=== PATIENT | female | born 1945 | race Caucasian/White ===

== ENCOUNTER 2018-12-16 15:54 | Inpatient (IN) | payer MEDICARE, OTHER ==
[~2018-12-16] VITALS: Ht 170.2 cm; Wt 78.9 kg
[2018-12-16] MEDS ORDERED: NITROGLYCERIN SUBLINGUAL 0.4 MG BOTTLE OF 25. SL PRN (16:15)
[2018-12-16] MEDS: ASPIRIN 81 MG TAB.CHEW PO ONE ×2 (16:15→16:21)
[2018-12-16] MEDS ORDERED: ASPIRIN 325 MG TABLET PO ONE (16:30)
[2018-12-16 16:52] LABS: BASO # 0.1 x10^3/uL (0.0-0.2); BASO % 0 % (0-3); EOS # 0.1 x10^3/uL (0.0-0.7); EOS % 1 % (0-3); HEMATOCRIT 51.7 % (36.0-47.0); HEMOGLOBIN 17.5 g/dL (12.0-15.5); LYMPH # 0.6 x10^3/uL (1.0-4.8); LYMPH % 4 % (24-48); MEAN CORPUSCULAR HEMOGLOBIN 31 pg (25-35); MEAN CORPUSCULAR HGB CONC 34 g/dL (31-37); MEAN CORPUSCULAR VOLUME 91 fL (79-100); MONO # 0.5 x10^3/uL (0.0-1.1); MONO % 3 % (0-9); NEUT # 13.2 x10^3uL (1.8-7.7); NEUT % 91 % (31-73); PLATELET COUNT 272 x10^3/uL (140-400); RED BLOOD COUNT 5.67 x10^6/uL (3.50-5.40); RED CELL DISTRIBUTION WIDTH 12.9 % (11.5-14.5); WHITE BLOOD COUNT 14.4 x10^3/uL (4.0-11.0)
[2018-12-16] MEDS ORDERED: ONDANSETRON PF 4 MG/2 ML VIAL. ONE ×2 (16:55→21:04)
[2018-12-16 16:58] LABS: ALBUMIN 4.7 g/dL (3.4-5.0); ALBUMIN/GLOBULIN RATIO 1.3 (1.0-1.7); CALCIUM 9.8 mg/dL (8.5-10.1); CREATININE 0.9 mg/dL (0.6-1.0); GFR 61.7; MAGNESIUM 1.8 mg/dL (1.8-2.4); TOTAL BILIRUBIN 0.6 mg/dL (0.2-1.0); TOTAL PROTEIN 8.3 g/dL (6.4-8.2)
[2018-12-16] MEDS ORDERED: ONDANSETRON PF 4 MG/2 ML VIAL. IV ONE ×2 (17:00→21:15)
--- NOTE | 2018-12-16 17:19 | PHYS DOC ---
Past History Past Medical History: Anxiety, CVA, Hypertension, Other Past Surgical History: Hysterectomy, Tonsillectomy Alcohol Use: None Drug Use: None Adult General Chief Complaint Chief Complaint: CHEST PAIN HPI HPI Patient is a 73 year old female who presents with with of chest pain. Patient is hard of hearing and a poor historian and states she has had episodes of left -sided chest pain for the last 2-3 days intermittently as a squeezing and sharp pain with shortness of breath and nausea. Patient states she vomited multiple times today may be more than 10 and states she had the same pain previously with diagnosis of musculoskeletal chest pain. Patient had history of smoking and hypertension and denies history of CAD, dyslipidemia, coronary artery disease. She rated her pain 3/10. Review of Systems Review of Systems Constitutional: Denies fever or chills [] Eyes: Denies change in visual acuity, redness, or eye pain [] HENT: Denies nasal congestion or sore throat [] Respiratory: Reports cough and shortness of breath Cardiovascular: No additional information not addressed in HPI [] GI: Denies abdominal pain, bloody stools or diarrhea, reports nausea and vomiting] : Denies dysuria or hematuria [] Musculoskeletal: Denies back pain or joint pain [] Integument: Denies rash or skin lesions [] Neurologic: Denies headache, focal weakness or sensory changes [] Endocrine: Denies polyuria or polydipsia [] All other systems were reviewed and found to be within normal limits, except as documented in this note. Current Medications Current Medications Current Medications Medications (Trade) Dose Ordered Sig/Antonio Start Time Stop Time Status Last Admin Dose Admin Aspirin (Kait Aspirin) 325 mg 1X ONCE 12/16/18 16:30 12/16/18 16:31 DC Aspirin (Children'S Aspirin) 324 mg 1X ONCE 12/16/18 16:15 12/16/18 16:20 DC Nitroglycerin (Nitrostat) 0.4 mg PRN Q5MIN PRN 12/16/18 16:15 12/17/18 16:14 Ondansetron HCl (Zofran) 4 mg STK-MED ONCE 12/16/18 16:55 12/16/18 16:56 DC Allergies Allergies Allergies Coded Allergies Type Severity Reaction Last Updated Verified erythromycin base Allergy Unknown 12/16/18 Yes Uncoded Allergies Type Severity Reaction Last Updated Verified ANY DYE Allergy Unknown 12/16/18 Physical Exam Physical Exam Constitutional: Wel nourished, no acute distress, non-toxic appearance, hard of hearing. [] HENT: Normocephalic, atraumatic Eyes: PERRLA, EOMI, conjunctiva normal, no discharge. [] Neck: Normal range of motion, no tenderness, supple, no stridor. [] Cardiovascular:Heart rate regular rhythm, no murmur [] Lungs & Thorax: Bilateral breath sounds clear to auscultation , reproducible left-sided chest pain [] Abdomen: Bowel sounds normal, soft, no tenderness, no masses, no pulsatile masses. [] Skin: Warm, dry, no erythema, no rash. [] Back: No tenderness, no CVA tenderness. [] Extremities: No tenderness, no cyanosis, no clubbing, ROM intact, no edema. [] Neurologic: Alert and oriented X 3, normal motor function, normal sensory function, no focal deficits noted. [] Psychologic: Affect depress, normal mood Current Patient Data Vital Signs Vital Signs Date Time Temp Pulse Resp B/P (MAP) Pulse Ox O2 Delivery O2 Flow Rate FiO2 12/16/18 15:54 94.4 120 24 98 Room Air Lab Results Laboratory Tests Test 12/16/18 16:09 12/16/18 16:18 Troponin I Quantitative < 0.017 ng/mL (0-0.055) White Blood Count 14.4 x10^3/uL (4.0-11.0) H Red Blood Count 5.67 x10^6/uL (3.50-5.40) H Hemoglobin 17.5 g/dL (12.0-15.5) H Hematocrit 51.7 % (36.0-47.0) H Mean Corpuscular Volume 91 fL (79-100) Mean Corpuscular Hemoglobin 31 pg (25-35) Mean Corpuscular Hemoglobin Concent 34 g/dL (31-37) Red Cell Distribution Width 12.9 % (11.5-14.5) Platelet Count 272 x10^3/uL (140-400) Neutrophils (%) (Auto) 91 % (31-73) H Lymphocytes (%) (Auto) 4 % (24-48) L Monocytes (%) (Auto) 3 % (0-9) Eosinophils (%) (Auto) 1 % (0-3) Basophils (%) (Auto) 0 % (0-3) Neutrophils # (Auto) 13.2 x10^3uL (1.8-7.7) H Lymphocytes # (Auto) 0.6 x10^3/uL (1.0-4.8) L Monocytes # (Auto) 0.5 x10^3/uL (0.0-1.1) Eosinophils # (Auto) 0.1 x10^3/uL (0.0-0.7) Basophils # (Auto) 0.1 x10^3/uL (0.0-0.2) Prothrombin Time 10.0 SEC (9.4-11.4) Prothrombin Time INR 1.0 (0.9-1.1) Sodium Level 137 mmol/L (136-145) Potassium Level 4.0 mmol/L (3.5-5.1) Chloride Level 97 mmol/L (98-107) L Carbon Dioxide Level 29 mmol/L (21-32) Anion Gap 11 (6-14) Blood Urea Nitrogen 13 mg/dL (7-20) Creatinine 0.9 mg/dL (0.6-1.0) Estimated GFR (Cockcroft-Gault) 61.7 BUN/Creatinine Ratio 14 (6-20) Glucose Level 136 mg/dL (70-99) H Lactic Acid Level 1.2 mmol/L (0.4-2.0) Calcium Level 9.8 mg/dL (8.5-10.1) Magnesium Level 1.8 mg/dL (1.8-2.4) Total Bilirubin 0.6 mg/dL (0.2-1.0) Aspartate Amino Transferase (AST) 19 U/L (15-37) Alanine Aminotransferase (ALT) 22 U/L (14-59) Alkaline Phosphatase 95 U/L (46-116) Creatine Kinase 135 U/L (26-192) UV-Woi-U-Type Natriuretic Peptide 250 pg/mL (0-124) H Total Protein 8.3 g/dL (6.4-8.2) H Albumin 4.7 g/dL (3.4-5.0) Albumin/Globulin Ratio 1.3 (1.0-1.7) Lipase 194 U/L (73-393) EKG EKG EKG interpreted by me. EKG at 1632 showed sinus rhythm at rate of 86, left atrial abnormalities, left reynolds axis, poor R-wave progress in anteroseptal leads , no acute distress and T-wave abnormalities. Radiology/Procedures Radiology/Procedures [address] [address] IMAGING REPORT Signed PATIENT: MICHELLE CASTLE ACCOUNT: [id number] : 1945 LOCATION: ER AGE: 73 SEX: F EXAM STATUS: PRE ER ORD. PHYSICIAN: MADELINE ODEN MD REASON: none PROCEDURE: PORTABLE CHEST 1V EXAM: Chest, single view. HISTORY: Short of breath. COMPARISON: None. FINDINGS: A frontal view of the chest is obtained. There is no infiltrate, pleural effusion or pneumothorax. The heart is normal in size for portable technique. There is slight increased opacity overlying the right mid thorax due to asymmetric overlying soft tissues. IMPRESSION: No acute pulmonary finding. Electronically signed by: Yolanda Lowery MD (12/16/2018 5:37 PM) [facility] DICTATED AND SIGNED BY: YOLANDA LOWERY MD DATE: 12/16/181736 CC: MADELINE ODEN MD; NON,STAFF ~ Course & Med Decision Making Course & Med Decision Making Pertinent Labs and Imaging studies reviewed. (See chart for details) Evaluation of patient in ER showed 73-year-old male patient with complaining of episodes of nausea and vomiting and chest pain for the last 3 days. Patient refused to take aspirin and nitroglycerin was of having dye.. Patient had elevation of white count. Plan to admit patient with diagnose of chest pain and nausea and vomiting. Dragon Disclaimer Dragon Disclaimer This electronic medical record was generated, in whole or in part, using a voice recognition dictation system. Departure Departure: Impression: Primary Impression: Acute chest pain Additional Impressions: Nausea and vomiting Leukocytosis Disposition: ADMITTED INPATIENT (at 1754) Admitting Physician: Burke Burch Referrals: NON,STAFF (PCP) Problem Qualifiers MADELINE ODEN MD Dec 16, 2018 17:19
--- NOTE | 2018-12-16 17:40 | RAD ---
EXAM: Chest, single view. HISTORY: Short of breath. COMPARISON: None. FINDINGS: A frontal view of the chest is obtained. There is no infiltrate, pleural effusion or pneumothorax. The heart is normal in size for portable technique. There is slight increased opacity overlying the right mid thorax due to asymmetric overlying soft tissues. IMPRESSION: No acute pulmonary finding. Electronically signed by: Yolanda Zavala MD (12/16/2018 5:37 PM) [facility]
[2018-12-16] MEDS ORDERED: KETOROLAC 30 MG/ML VIAL. IV ONE (18:30)
--- NOTE | 2018-12-16 21:08 | EKG ---
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
[2018-12-16 21:30] VITALS: BP 105/73
--- NOTE | 2018-12-16 21:30 | NUR ---
The patient, MICHELLE CASTLE, 73 y/o, F admitted by ARIANA PAULSON MD, to room 120 was given written information regarding hospital policies, unit procedures and contact persons. Valuables were checked and left with the patient. Pt placed on telemetry and changed into a gown. Medical history and medications reviewed.
[2018-12-16] MEDS ORDERED: LISI10TA2 PO (23:34)
[2018-12-16] MEDS ORDERED: LORA10TA3 PO (23:35)
[2018-12-16] MEDS ORDERED: METO200T46 PO (23:35)
[2018-12-16] MEDS ORDERED: CALC200T3 PO (23:39)
[2018-12-16] MEDS ORDERED: LATA7.5D OU (23:39)
[2018-12-16] MEDS ORDERED: SUMA50TA3 PO (23:39)
[2018-12-16] MEDS ORDERED: TRAM-48 PO (23:39)
[2018-12-17] MEDS ORDERED: CALCIUM CARBONATE 500 MG TAB.CHEW PO PRN (01:00)
[2018-12-17 03:52] VITALS: BP 95/67
[2018-12-17] MEDS ORDERED: IV NORMAL SALINE 500ML 500 ML IV ONE (04:30)
[2018-12-17] MEDS ORDERED: IV NORMAL SALINE 1,000ML 1,000 ML IV SCH (04:30)
[2018-12-17 06:15] VITALS: BP 103/68
[2018-12-17 07:37] LABS: BASO % 0 % (0-3); EOS % 1 % (0-3); HEMATOCRIT 38.3 % (36.0-47.0); HEMOGLOBIN 13.2 g/dL (12.0-15.5); LYMPH # 0.4 x10^3/uL (1.0-4.8); LYMPH % 8 % (24-48); MEAN CORPUSCULAR HEMOGLOBIN 31 pg (25-35); MEAN CORPUSCULAR HGB CONC 34 g/dL (31-37); MEAN CORPUSCULAR VOLUME 91 fL (79-100); MONO # 0.3 x10^3/uL (0.0-1.1); MONO % 5 % (0-9); NEUT # 4.9 x10^3uL (1.8-7.7); NEUT % 87 % (31-73); PLATELET COUNT 174 x10^3/uL (140-400); RED CELL DISTRIBUTION WIDTH 12.8 % (11.5-14.5); WHITE BLOOD COUNT 5.6 x10^3/uL (4.0-11.0)
[2018-12-17 07:53] LABS: ALBUMIN/GLOBULIN RATIO 1.2 (1.0-1.7); CALCIUM 8.6 mg/dL (8.5-10.1); CREATININE 1.1 mg/dL (0.6-1.0); POTASSIUM 4.1 mmol/L (3.5-5.1); TOTAL BILIRUBIN 0.6 mg/dL (0.2-1.0); TOTAL PROTEIN 5.5 g/dL (6.4-8.2)
[2018-12-17] MEDS: METOPROLOL SUCC 24HR ER 50 MG TAB.ER.24H. PO SCH ×2 (08:26→09:00)
[2018-12-17] MEDS: LISINOPRIL 10 MG TABLET PO SCH ×2 (08:26→09:00)
--- NOTE | 2018-12-17 09:18 | PDOC2 ---
CONSULT Date of Admission DATE: 12/17/18 TIME: 09:18 Problem List Problems Medical Problems: (1) Acute chest pain Status: Acute (2) Leukocytosis Status: Acute (3) Nausea and vomiting Status: Acute History of Present Illness Ms Vergara is a 73 year old female who presented to the ED with complaints of chest pain. She reports left sided chest pain both a sharp stabbing pain that lasts seconds but also a pressure and tightness that occur most often with exertion. yesterday she had left sided chest pain with associated nausea and vomiting so presented to the ED. She reports occasional chest pain that radiates up her left shoulder, neck and into her jaw with associated diaphoresis. She is very active normally and cares for an 18 month old grandchild. She denies any congestive symptoms. She does report occasional fluttering in her chest and has had previously been told her rhythm was irregular. She denies any lightheadedness or syncope. She reports that she has not needed to decrease her activity level but is frequently having the chest discomfort episodes with normal activities. Past Medical History brain aneurysm with clipping and shunt hypertension skiing accident with multiple fractures and internal bleeding s/p prolonged ICU stay and multiple left sided fracture repairs. hard of hearing migranes GERD anxiety depression Past Surgical History: Hysterectomy, Other (multiple left sided orthopedic surgeries with rods and pins lower extremitites, aneurysm clipping and shunt) Family History alcoholism, lung and kidney cancer, as well as coronary artery disease in her mother. Social History remote history of alcoholism, stopped smoking 15 years ago, no illicit drug use Current Medications Home meds Toprol XL 400mg daily Lisinopril 10 mg daily tramadol PRN sumatriptan PRN Tums prn loratadine 10mg prn Current Medications Aspirin (Children'S Aspirin) 324 mg 1X ONCE PO ; Start 12/16/18 at 16:15; Stop 12/16/18 at 16:20; Status DC Nitroglycerin (Nitrostat) 0.4 mg PRN Q5MIN PRN SL CP RATING > 1/10; Start 12/16 at 16:15; Stop 12/17/18 at 16:14 Aspirin (Kait Aspirin) 325 mg 1X ONCE PO ; Start 12/16/18 at 16:30; Stop 12/16 at 16:31; Status DC Ondansetron HCl (Zofran) 4 mg 1X ONCE IV Last administered on 3/10/19at 17:04 ; Start 12/16/18 at 17:00; Stop 12/16/18 at 17:01; Status DC Ondansetron HCl (Zofran) 4 mg STK-MED ONCE .ROUTE ; Start 12/16/18 at 16:55; Stop 12/16/18 at 16:56; Status DC Ketorolac Tromethamine (Toradol 30mg Vial) 30 mg 1X ONCE IV Last administered on 12/16/18at 21:07; Start 12/16/18 at 18:30; Stop 12/16/18 at 18:31; Status DC Ondansetron HCl (Zofran) 8 mg 1X ONCE IV Last administered on 12/16/18at 21:07 ; Start 12/16/18 at 21:15; Stop 12/16/18 at 21:16; Status DC Ondansetron HCl (Zofran) 4 mg STK-MED ONCE .ROUTE ; Start 12/16/18 at 21:04; Stop 12/16/18 at 21:05; Status DC Calcium Carbonate/ Glycine (Tums) 200 mg PRN Q6HRS PRN PO INDIGESTION; Start at 01:00 Lisinopril (Prinivil) 10 mg DAILY PO ; Start 12/17/18 at 09:00 Metoprolol Succinate (Toprol Xl) 400 mg DAILY PO ; Start 12/17/18 at 09:00 Sodium Chloride 500 ml @ 0 mls/hr 1X ONCE IV Last administered on 12/17/18at 04 :30; Start 12/17/18 at 04:30; Stop 12/17/18 at 05:40; Status DC Sodium Chloride 1,000 ml @ 100 mls/hr Q10H IV Last administered on 12/17/18at 06:00; Start 12/17/18 at 04:30 Active Scripts Active Reported Tums (Calcium Carbonate) 200 Mg Tab.chew 200 Mg PO Q6HRS PRN Ultram (Tramadol HCl) 50 Mg Tablet 1 Tab PO Q6 PRN Latanoprost 0.005% Eye Drop (Latanoprost/Pf) 7.5 Ml Drops 1 Drop OU DAILY Imitrex (Sumatriptan Succinate) 50 Mg Tablet 1 Tab PO DAILY PRN Loratadine 10 Mg Tablet 1 Tab PO DAILY PRN Metoprolol Succinate ( Xl ) (Metoprolol Succinate) 200 Mg Tab.er.24h 400 Mg PO DAILY Lisinopril 10 Mg Tablet 10 Mg PO DAILY Allergies: Coded Allergies: erythromycin base (Verified Allergy, Unknown, 12/16/18) Uncoded Allergies: ANY DYE (Allergy, Unknown, 12/16/18) Review of System as per HPI or negative General: Alert, Oriented X3, Cooperative, No acute distress HEENT: Atraumatic, EOMI, Mucous membr. moist/pink Lungs: Clear to auscultation Heart: Normal S1, Normal S2, Other (no gallops, clicks or rubs) Abdomen: Normal bowel sounds, Soft, No tenderness Extremities: No cyanosis, Normal pulses Neuro: Normal speech, Strength at 5/5 X4 ext Psych/Mental Status: Mental status NL, Mood NL VITALS Vital Signs Date Time Temp Pulse Resp B/P (MAP) Pulse Ox O2 Delivery O2 Flow Rate FiO2 12/17/18 09:17 Room Air 12/17/18 09:00 64 103/68 12/17/18 06:15 98.0 18 94 Labs Laboratory Tests Test 12/16/18 16:09 12/16/18 16:18 12/17/18 00:35 12/17/18 06:00 Troponin I Quantitative < 0.017 ng/mL (0-0.055) < 0.017 ng/mL (0-0.055) < 0.017 ng/mL (0-0.055) White Blood Count 14.4 x10^3/uL (4.0-11.0) 5.6 x10^3/uL (4.0-11.0) Red Blood Count 5.67 x10^6/uL (3.50-5.40) 4.20 x10^6/uL (3.50-5.40) Hemoglobin 17.5 g/dL (12.0-15.5) 13.2 g/dL (12.0-15.5) Hematocrit 51.7 % (36.0-47.0) 38.3 % (36.0-47.0) Mean Corpuscular Volume 91 fL (79-100) 91 fL (79-100) Mean Corpuscular Hemoglobin 31 pg (25-35) 31 pg (25-35) Mean Corpuscular Hemoglobin Concent 34 g/dL (31-37) 34 g/dL (31-37) Red Cell Distribution Width 12.9 % (11.5-14.5) 12.8 % (11.5-14.5) Platelet Count 272 x10^3/uL (140-400) 174 x10^3/uL (140-400) Neutrophils (%) (Auto) 91 % (31-73) 87 % (31-73) Lymphocytes (%) (Auto) 4 % (24-48) 8 % (24-48) Monocytes (%) (Auto) 3 % (0-9) 5 % (0-9) Eosinophils (%) (Auto) 1 % (0-3) 1 % (0-3) Basophils (%) (Auto) 0 % (0-3) 0 % (0-3) Neutrophils # (Auto) 13.2 x10^3uL (1.8-7.7) 4.9 x10^3uL (1.8-7.7) Lymphocytes # (Auto) 0.6 x10^3/uL (1.0-4.8) 0.4 x10^3/uL (1.0-4.8) Monocytes # (Auto) 0.5 x10^3/uL (0.0-1.1) 0.3 x10^3/uL (0.0-1.1) Eosinophils # (Auto) 0.1 x10^3/uL (0.0-0.7) 0.0 x10^3/uL (0.0-0.7) Basophils # (Auto) 0.1 x10^3/uL (0.0-0.2) 0.0 x10^3/uL (0.0-0.2) Prothrombin Time 10.0 SEC (9.4-11.4) Prothromb Time International Ratio 1.0 (0.9-1.1) Sodium Level 137 mmol/L (136-145) 137 mmol/L (136-145) Potassium Level 4.0 mmol/L (3.5-5.1) 4.1 mmol/L (3.5-5.1) Chloride Level 97 mmol/L (98-107) 103 mmol/L (98-107) Carbon Dioxide Level 29 mmol/L (21-32) 24 mmol/L (21-32) Anion Gap 11 (6-14) 10 (6-14) Blood Urea Nitrogen 13 mg/dL (7-20) 19 mg/dL (7-20) Creatinine 0.9 mg/dL (0.6-1.0) 1.1 mg/dL (0.6-1.0) Estimated GFR (Cockcroft-Gault) 61.7 49.0 BUN/Creatinine Ratio 14 (6-20) 17 (6-20) Glucose Level 136 mg/dL (70-99) 111 mg/dL (70-99) Lactic Acid Level 1.2 mmol/L (0.4-2.0) Calcium Level 9.8 mg/dL (8.5-10.1) 8.6 mg/dL (8.5-10.1) Magnesium Level 1.8 mg/dL (1.8-2.4) Total Bilirubin 0.6 mg/dL (0.2-1.0) 0.6 mg/dL (0.2-1.0) Aspartate Amino Transf (AST/SGOT) 19 U/L (15-37) 16 U/L (15-37) Alanine Aminotransferase (ALT/SGPT) 22 U/L (14-59) 18 U/L (14-59) Alkaline Phosphatase 95 U/L (46-116) 55 U/L (46-116) Creatine Kinase 135 U/L (26-192) DX-Lph-L-Type Natriuretic Peptide 250 pg/mL (0-124) Total Protein 8.3 g/dL (6.4-8.2) 5.5 g/dL (6.4-8.2) Albumin 4.7 g/dL (3.4-5.0) 3.0 g/dL (3.4-5.0) Albumin/Globulin Ratio 1.3 (1.0-1.7) 1.2 (1.0-1.7) Lipase 194 U/L (73-393) Images CXR - IMPRESSION: No acute pulmonary finding. Assessment/Plan 1. chest pain consistent with unstable angina - DC ruled out. No acute EKG changes. Continue metoprolol, aspirin. no nitrates due to borderline blood pressure currently. Suggest transfer for cardiac cath and possible PCI, Echo for LV function. 2. hypertension - well controlled currently 3. unk lipid status - check lipids 4. allergy to multiple food dyes - watch rx closely for interactions 5. palpitations - event monitoring on discharge. NELLA SINGH OPERATIONS RESEARCH SCIENTIST Dec 17, 2018 09:18
[2018-12-17] MEDS ORDERED: ASPIRIN ENTERIC COATED 81 MG TABLET.DR. PO SCH (09:45)
--- NOTE | 2018-12-17 09:55 | HP ---
ADMIT DATE: 12/16/2018 HISTORY OF PRESENT ILLNESS: The patient is a 73-year-old female patient who came to the Emergency Room complaining of left-sided chest pain that has been going on for the last 2-3 days, intermittent, squeezing, and sharp pain with shortness of breath and nausea. She also has vomited multiple times and also had diarrhea. The patient was extensively investigated in the Emergency Room. Her EKG showed that she was in sinus rhythm with a rate of 86 with left atrial abnormality, leftward axis, poor R-wave progression in anteroseptal leads, no acute ST-T changes. Her chest x-ray showed there is no infiltrate, pleural effusion, or pneumothorax. The heart size is normal for portable technique. There is slight increased opacity overlying the right mid thorax due to asymmetric overlying soft tissue. Her first set of cardiac enzyme was less than 0.017 ng/mL and the patient was admitted with left-sided chest pain and also what seems to be gastroenteritis. We will do 2 more sets of cardiac enzyme. We will continue to monitor her intake and output and advance her diet as tolerated. PAST MEDICAL HISTORY: Significant for hypertension, severe sensorineural deafness, migraine headache, glaucoma, and what seems to be macular degeneration. She has also cerebral aneurysm treated by what seems to be coil embolization. PAST SURGICAL HISTORY: Significant for brain aneurysm coil embolization, total abdominal hysterectomy, left femur fracture, status post open reduction and internal fixation, and had tonsillectomy. ALLERGIES: SHE IS ALLERGIC TO ANY DYE WELL ERYTHROMYCIN BASE. MEDICATIONS: She is currently on following medications: She is on loratadine 10 mg once a day, metoprolol succinate 200 mg, she takes actually 400 mg daily, lisinopril 10 mg once a day, tramadol 50 mg every 6 hours, sumatriptan succinate 50 mg daily, latanoprost 1 drop to both eyes daily, calcium carbonate 200 mg every 6 hours. FAMILY HISTORY: She has one sister older and a younger brother, who has kidney cancer, underwent nephrectomy for one kidney and chemotherapy for the other. Her father at the age of 62 because of lung cancer. Mother in her 80s because of cerebrovascular accident. SOCIAL HISTORY: She is and has two daughters and one son. She smokes less than a pack a day. She does not drink alcohol or use recreational drugs. 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 REVIEW OF SYSTEMS: The patient denied any blurring of vision, cataract. She does have glaucoma. She has bilateral severe sensorineural deafness. Denied any nosebleeds, stuffy nose, or postnasal drip. Denied any sore throat, sore tongue, toothache, hoarseness of voice, or difficulty swallowing. Did complain of nausea and has had no further episodes of vomiting and has had as stated about multiple episodes of diarrhea, but denied any hematemesis, melena, or hematochezia. Denied any dysuria, frequency, hematuria. Did complain of left-sided chest pain that comes and goes related to at rest and on exertion, it is mostly in the left side, not associated with any shortness of breath or diaphoresis. It does not radiate to the neck, left-sided jaw or shoulder or left arm. PHYSICAL EXAMINATION: GENERAL: On arrival to the Emergency Room, the patient looked well, was slightly tachypneic, pale, but no jaundice, cyanosis, or thyromegaly. No jugular venous distension. No lower limb edema. VITAL SIGNS: Her heart rate was 102, blood pressure was 132/82, temperature was 97.8, respiratory rate 20, and oxygen saturation was 94% on room air. HEAD, EYES, EARS, NOSE, AND THROAT: Showed normocephalic, atraumatic. NECK: Her neck was supple. HEART: Showed normal first and second heart sounds. No gallop, rub, or murmur. CHEST: Clear to auscultation. No crepitation or rhonchi. ABDOMEN: Distended, soft, nontender. NEUROLOGIC: She is very hard of hearing, otherwise all cranial nerves intact. EXTREMITIES: She moves extremities without difficulty. She ambulates without assistance or assistive devices. LABORATORY DATA: On admission showed a white cell count of 14,400, hemoglobin 17.5, hematocrit 51.7, MCV 91, and platelet count 272,000. Her chemistry showed a serum sodium 137, potassium 4, chloride 97, bicarbonate 29, anion gap of 11, BUN 13, creatinine was 0.9. Her BUN was 13, creatinine 0.9, estimated GFR was 62 mL per minute. Her glucose 136. Lactic acid was 1.2, calcium was 9.8, magnesium was 1.8. Total bilirubin, AST, ALT, alkaline phosphatase were normal. Her total protein was 8.3. ____ albumin was 4.7 and serum lipase was 194. Her prothrombin time was 10, INR of 1. Her chest x-ray showed that the patient has no infiltrate, pleural effusion, or pneumothorax. The heart is normal in size for portable technique. There is slight increased opacity overlying the right mid thorax due to asymmetric overlying soft tissue. ASSESSMENT AND PLAN: The patient was admitted with left-sided chest pain, nausea, and vomiting as well as leukocytosis and diarrhea. The chest pain is fairly atypical. We will do 2 more sets of cardiac enzymes. The patient was continued on IV fluids and antiemetic. We will decide on further management accordingly. ARIANA PAULSON MD DR: JARVIS/ephraim JOB#: [id number] / [id number]
[2018-12-17 10:37] VITALS: BP 97/58
--- NOTE | 2018-12-17 10:45 | NUR ---
Jadyn ROSA notified nurse that patient will need to be transfered to [facility] for cardiac cath due to chest pain that has radiated for 2 months when exerting. Stated plan was to have echo but schedule is booked today, so plan is to cath. Will notify patient at this time.
--- NOTE | 2018-12-17 11:12 | NUR ---
Patient notified and aware of transfer to [facility] for Cardiac cath. Roof Bolter Helper aware and awaiting bed placement.
--- NOTE | 2018-12-17 12:30 | NUR ---
Report given at this time to Munira HERNANDEZ at [facility], patient will go to Observation then to CVC bed. [facility] called at this time.
--- NOTE | 2018-12-17 13:27 | NUR ---
Patient discharged at this time via EMS, left with belongings and understands POC.
--- NOTE | 2018-12-17 21:08 | PN ---
DATE: 12/17/2018 SUBJECTIVE: The patient is resting slightly propped up in bed, in no apparent distress. She has had no further episode of chest pain. No nausea, no vomiting, no diarrhea. PHYSICAL EXAMINATION: GENERAL: When I examined her this morning, she looked well and was clearly in no apparent respiratory distress. No pallor, jaundice, cyanosis or thyromegaly. No jugular venous distension. No lower limb edema. VITAL SIGNS: Her heart rate was 64, blood pressure was 103/68, temperature was 98, respiratory rate was 18, and oxygen saturation was 94%. HEAD, EYES, EARS, NOSE AND THROAT: Showed normocephalic, atraumatic. NECK: Supple. HEART: Showed normal first and second heart sounds. No gallop, rub or murmur. CHEST: Clear to auscultation. No crepitation or rhonchi. ABDOMEN: Distended, soft, nontender. No guarding or rigidity. No organomegaly. All hernial orifices intact. Bowel sounds normal. NEUROLOGIC: She is extremely hard of hearing, otherwise, all cranial nerves intact. She moves extremities without difficulty. She ambulates without assistance or assistive devices. Her intake and output are incompletely recorded. LABORATORY DATA: This morning showed her white cell count is down to 5600, hemoglobin 13, hematocrit 38, MCV 91 and platelet count of 174,000. Her serum sodium was 137, potassium 4.1, chloride 103, bicarbonate 24, anion gap of 10, BUN 19, creatinine is 1.1. Estimated GFR was 49 mL per minute. Her glucose 111. Calcium was 8.6. Total bilirubin, AST, ALT, alkaline phosphatase were normal. Total protein was 5.5, albumin 3. ASSESSMENT AND PLAN: 1. Left-sided atypical chest pain. She has 3 sets of cardiac enzymes that ruled out myocardial infarction. 2. Acute gastroenteritis seems to be slowly resolving. 3. Hypertension for which she is on lisinopril and metoprolol. They are both on hold given her hypotension. 4. Glaucoma. 5. Migraine headache. 5. Severe sensorineural deafness. ARIANA PAULSON MD DR: JARVIS/ephraim JOB#: [id number] / [id number]
== END 2018-12-17 13:13 | disposition short-term general hospital (02) | DRG 313 ==
LOC: ER 15:54 → 1 SOUTH 18:40
PROVIDERS: ADMIT Internal Medicine; ATTEND Internal Medicine
DX: R07.89 Other chest pain (principal); D72.829 Elevated white blood cell count, unspecified; F17.210 Nicotine dependence, cigarettes, uncomplicated; G43.909 Migraine, unspecified, not intractable, without status migrainosus; H35.30 Unspecified macular degeneration; H40.9 Unspecified glaucoma; H90.5 Unspecified sensorineural hearing loss; I10 Essential (primary) hypertension; K21.9 Gastro-esophageal reflux disease without esophagitis; K52.9 Noninfective gastroenteritis and colitis, unspecified; F32.9 Major depressive disorder, single episode, unspecified; F41.9 Anxiety disorder, unspecified; I95.9 Hypotension, unspecified; Z80.1 Family history of malignant neoplasm of trachea, bronchus and lung; Z80.51 Family history of malignant neoplasm of kidney; Z82.3 Family history of stroke; Z82.49 Family history of ischemic heart disease and other diseases of the circulatory system; Z86.73 Personal history of transient ischemic attack (TIA), and cerebral infarction without residual deficits; Z90.710 Acquired absence of both cervix and uterus; Z88.8 Allergy status to other drugs, medicaments and biological substances
CPT/HCPCS: 36415; 71045; 80053; 82550; 83605; 83690; 83735; 83880; 84484; 85025; 85610; 87040; 93005; 96374; 96375; 96376; 99406; J1885; J2405; J7040; 99285-25; J7030

== ENCOUNTER 2020-04-16 18:04 | Emergency (ER) | payer MEDICARE ==
[~2020-04-16] VITALS: Ht 170.2 cm; Wt 79.1 kg
[~2020-04-16 18:04] MED LIST: CALC200T3 PO; LATA7.5D OU; LISI10TA2 PO; LORA10TA3 PO; METO200T46 PO; SUMA50TA3 PO; TRAM-48 PO
[2020-04-16] MEDS ORDERED: cloNIDine HCL 0.1 MG TABLET PO ONE (19:15)
[2020-04-16 19:33] LABS: BASO # 0.1 x10^3/uL (0.0-0.2); BASO % 1 % (0-3); EOS # 0.1 x10^3/uL (0.0-0.7); EOS % 1 % (0-3); HEMATOCRIT 45.8 % (36.0-47.0); HEMOGLOBIN 15.8 g/dL (12.0-15.5); LYMPH # 2.4 x10^3/uL (1.0-4.8); LYMPH % 23 % (24-48); MEAN CORPUSCULAR HEMOGLOBIN 32 pg (25-35); MEAN CORPUSCULAR HGB CONC 35 g/dL (31-37); MEAN CORPUSCULAR VOLUME 92 fL (79-100); MONO # 0.7 x10^3/uL (0.0-1.1); MONO % 7 % (0-9); NEUT % 68 % (31-73); PLATELET COUNT 265 x10^3/uL (140-400); WHITE BLOOD COUNT 10.3 x10^3/uL (4.0-11.0)
[2020-04-16 19:41] LABS: CALCIUM 9.7 mg/dL (8.5-10.1); GFR 54.5; POTASSIUM 4.2 mmol/L (3.5-5.1)
--- NOTE | 2020-04-16 19:47 | RAD ---
AP chest. HISTORY: Headache, elevated blood pressure, chest pain AP view was taken of the chest. Lungs are clear. Heart is normal in size. There is no pleural effusion. IMPRESSION: 1. No acute chest disease. Electronically signed by: Lee Rodriguez MD (04/16/2020 7:44 PM) [facility]
--- NOTE | 2020-04-16 19:54 | RAD ---
CT HEAD WO CONTRAST History:Headache, elevated blood pressure Comparison: None. Technique: Noncontrast CT imaging was performed of the head. Exposure: One or more of the following individualized dose reduction techniques were utilized for this examination: 1. Automated exposure control 2. Adjustment of the mA and/or kV according to patient size 3. Use of iterative reconstruction technique. Findings: No acute extra-axial or parenchymal hemorrhage is identified. There is no significant intra-axial mass effect, midline shift, or extra-axial fluid collection. The darby-white differentiation of the major vascular territories is preserved. The ventricles, sulci, and cisterns are within normal limits in size and configuration. The mastoid air cells and the visualized paranasal sinuses are aerated. No acute calvarial abnormality is identified. There is stent of the left cavernous and ophthalmic internal carotid artery. There is old right basal ganglia lacunar infarct, also of the right doran radiata. Impression: 1. There is no evidence of acute intracranial hemorrhage. There is old right basal ganglia lacunar infarct, also of the right doran radiata. There is stent in the left cavernous and ophthalmic internal carotid artery. Electronically signed by: Edd Lopez MD (04/16/2020 7:51 PM) [facility]
[2020-04-16 19:57] LABS: ALBUMIN 4.2 g/dL (3.4-5.0); ALBUMIN/GLOBULIN RATIO 1.4 (1.0-1.7); MAGNESIUM 1.8 mg/dL (1.8-2.4); TOTAL BILIRUBIN 0.6 mg/dL (0.2-1.0); TOTAL PROTEIN 7.3 g/dL (6.4-8.2)
--- NOTE | 2020-04-16 20:08 | PHYS DOC ---
Past History Past Medical History: Anxiety, Cancer, CVA, Depression, Diabetes, Hypertension, Other Past Surgical History: Cancer Surgery, Hysterectomy, Tonsillectomy Smoking: Cigarettes Alcohol Use: None Drug Use: None General Adult EDM: Chief Complaint: HYPERTENSION HPI: HPI: 74-year-old female presents with report of elevated blood pressure up to 210/120 today after obtaining a new blood pressure machine at her home.. Patient repor ts subsequently felt some headache, chest discomfort, and generalized malaise. Patient became concerned due to her elevated blood pressure and therefore presents to the ER for further evaluation. Review of Systems: Review of Systems: Constitutional: Denies fever or chills Eyes: Denies redness or eye pain HENT: Denies nasal congestion or sore throat Respiratory: Denies cough or shortness of breath Cardiovascular: Reports chest discomfort; denies palpitations GI: Denies abdominal pain, nausea, or vomiting : Denies dysuria or hematuria Musculoskeletal: Denies back pain or joint pain Integument: Denies rash or skin lesions Neurologic: Reports headache; denies focal weakness or sensory changes Complete systems were reviewed and found to be within normal limits, except as documented in this note. Current Medications: Current Meds: Current Medications Medications (Trade) Dose Ordered Sig/Antonio Start Time Stop Time Status Last Admin Dose Admin Clonidine HCl (Catapres) 0.1 mg 1X ONCE 04/16/20 19:15 04/16/20 19:16 DC 04/16/20 19:25 0.1 MG Allergies: Allergies: Allergies Coded Allergies Type Severity Reaction Last Updated Verified erythromycin base Allergy Unknown 12/16/18 Yes Uncoded Allergies Type Severity Reaction Last Updated Verified ANY DYE Allergy Unknown 12/16/18 Physical Exam: PE: Constitutional: Well developed, well nourished, no acute distress, non-toxic appearance, hard of hearing HENT: Normocephalic, atraumatic Eyes: PERRL, EOMI, conjunctiva normal, no discharge Neck: Normal range of motion, no tenderness, supple Cardiovascular: Heart rate normal, regular rhythm Lungs & Thorax: Bilateral breath sounds clear to auscultation, no wheezing Abdomen: Soft, no tenderness Skin: Warm, dry, no erythema, no rash Extremities: No tenderness, ROM intact, no edema Neurologic: Alert and oriented X 3, normal motor function, normal sensory function, no focal deficits noted Psychologic: Affect anxious, judgment normal Current Patient Data: Labs: Laboratory Tests Test 04/16/20 19:01 White Blood Count 10.3 x10^3/uL (4.0-11.0) Red Blood Count 5.00 x10^6/uL (3.50-5.40) Hemoglobin 15.8 g/dL (12.0-15.5) H Hematocrit 45.8 % (36.0-47.0) Mean Corpuscular Volume 92 fL (79-100) Mean Corpuscular Hemoglobin 32 pg (25-35) Mean Corpuscular Hemoglobin Concent 35 g/dL (31-37) Red Cell Distribution Width 13.0 % (11.5-14.5) Platelet Count 265 x10^3/uL (140-400) Neutrophils (%) (Auto) 68 % (31-73) Lymphocytes (%) (Auto) 23 % (24-48) L Monocytes (%) (Auto) 7 % (0-9) Eosinophils (%) (Auto) 1 % (0-3) Basophils (%) (Auto) 1 % (0-3) Neutrophils # (Auto) 7.0 x10^3uL (1.8-7.7) Lymphocytes # (Auto) 2.4 x10^3/uL (1.0-4.8) Monocytes # (Auto) 0.7 x10^3/uL (0.0-1.1) Eosinophils # (Auto) 0.1 x10^3/uL (0.0-0.7) Basophils # (Auto) 0.1 x10^3/uL (0.0-0.2) Prothrombin Time 10.1 SEC (9.4-11.4) Prothrombin Time INR 1.0 (0.9-1.1) Activated Partial Thromboplast Time 27 SEC (23-33) Sodium Level 129 mmol/L (136-145) L Potassium Level 4.2 mmol/L (3.5-5.1) Chloride Level 93 mmol/L (98-107) L Carbon Dioxide Level 28 mmol/L (21-32) Anion Gap 8 (6-14) Blood Urea Nitrogen 11 mg/dL (7-20) Creatinine 1.0 mg/dL (0.6-1.0) Estimated GFR (Cockcroft-Gault) 54.5 BUN/Creatinine Ratio 11 (6-20) Glucose Level 118 mg/dL (70-99) H Calcium Level 9.7 mg/dL (8.5-10.1) Magnesium Level 1.8 mg/dL (1.8-2.4) Total Bilirubin 0.6 mg/dL (0.2-1.0) Aspartate Amino Transferase (AST) 16 U/L (15-37) Alanine Aminotransferase (ALT) 22 U/L (14-59) Alkaline Phosphatase 79 U/L (46-116) Creatine Kinase 81 U/L (26-192) Creatine Kinase MB (Mass) 2.0 ng/mL (0.0-3.6) Creatine Kinase MB Relative Index 2.5 % (0-4) Troponin I Quantitative < 0.017 ng/mL (0-0.055) Total Protein 7.3 g/dL (6.4-8.2) Albumin 4.2 g/dL (3.4-5.0) Albumin/Globulin Ratio 1.4 (1.0-1.7) Lipase 164 U/L (73-393) Vital Signs: Vital Signs Date Time Temp Pulse Resp B/P (MAP) Pulse Ox O2 Delivery O2 Flow Rate FiO2 04/16/20 19:25 65 212/102 04/16/20 18:35 98.3 22 98 Room Air EKG: EKG: @1905 NSR at 67bpm, NO ST elevation, QRS 110ms, QT/QTc 402/428ms, baseline artifact noted Radiology/Procedures: Radiology/Procedures: PROCEDURE: CT HEAD WO CONTRAST CT HEAD WO CONTRAST History:Headache, elevated blood pressure Comparison: None. Technique: Noncontrast CT imaging was performed of the head. Exposure: One or more of the following individualized dose reduction techniques were utilized for this examination: 1. Automated exposure control 2. Adjustment of the mA and/or kV according to patient size 3. Use of iterative reconstruction technique. Findings: No acute extra-axial or parenchymal hemorrhage is identified. There is no significant intra-axial mass effect, midline shift, or extra-axial fluid collection. The darby-white differentiation of the major vascular territories is preserved. The ventricles, sulci, and cisterns are within normal limits in size and configuration. The mastoid air cells and the visualized paranasal sinuses are aerated. No acute calvarial abnormality is identified. There is stent of the left cavernous and ophthalmic internal carotid artery. There is old right basal ganglia lacunar infarct, also of the right doran radiata. Impression: 1. There is no evidence of acute intracranial hemorrhage. There is old right basal ganglia lacunar infarct, also of the right doran radiata. There is stent in the left cavernous and ophthalmic internal carotid artery. Electronically signed by: Edd Lopez MD (04/16/2020 7:51 PM) [facility] PROCEDURE: CHEST AP ONLY AP chest. HISTORY: Headache, elevated blood pressure, chest pain AP view was taken of the chest. Lungs are clear. Heart is normal in size. There is no pleural effusion. IMPRESSION: 1. No acute chest disease. Electronically signed by: Lee Rodriguez MD (04/16/2020 7:44 PM) [facility] Course & Med Decision Making: Course & Med Decision Making Pertinent Labs and Imaging studies reviewed. (See chart for details) Patient presents with report of elevated blood pressure today. Patient does have a history of hypertension. Reports has been compliant with her medications. Blood pressure elevated upon arrival. Patient does appear slightly anxious. Labs obtained and posted to chart. EKG stable. CT head without acute process. Chest x-ray clear. Blood pressure addressed with clonidine 0.1 mg p.o. Patient with interval improvement of blood pressure. Patient stable for discharge with outpatient follow-up with PCP. Discussed findings and plan with patient, who acknowledges understanding and agreement. Rashel Disclaimer: Rashel Disclaimer: This electronic medical record was generated, in whole or in part, using a voice recognition dictation system. Departure Departure: Impression: Primary Impression: Hypertensive urgency Disposition: 01 HOME/RESIDENCE PRIOR TO ADM Condition: STABLE Referrals: PCP,UNKNOWN (PCP) Patient Instructions: Hypertension, [id number] Clonidine Hcl (CLONIDINE HCL) 0.1 Mg Tablet 1 TAB PO BID PRN for ELEVATED BP, SEE COMMENTS, #20 TAB Take each tablet for systolic (upper) blood pressure greater than 200 and/or diastolic (lower) blood pressure greater than 110. Prov: TRAVIS ROBISON DO 04/16/20 Justification of Admission: Justification of Admission: Justification of Admission Dx: N/A Critical Care Time Critical care time was 30 minutes which includes time at bedside, spent in discussion of patient's care with specialists and/or family members, with interpretation of laboratory and/or radiological studies and is exclusive of procedures. TRAVIS ROBISON DO Apr 16, 2020 20:08
[2020-04-16] MEDS ORDERED: IV NORMAL SALINE 500ML 500 ML IV ONE (20:15)
[2020-04-16 21:24] LABS: BACTERIA,URINE FEW /HPF (0-FEW); BILIRUBIN,URINE NEG (NEG); CLARITY,URINE CLEAR; COLOR,URINE YELLOW; GLUCOSE,URINE NEG (NEG); NITRITE,URINE NEG (NEG); RBC,URINE OCC /HPF (0-2); SQUAMOUS EPITHELIAL CELL,UR MOD /LPF; UROBILINOGEN,URINE 0.2 mg/dL (0.2 mg/dL)
[2020-04-16 21:27] VITALS: BP 150/79
[2020-04-16] MEDS ORDERED: CLON0.1T PO (21:34)
--- NOTE | 2020-04-18 12:38 | EKG ---
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
== END 2020-04-16 21:48 | disposition home or self-care (01) ==
LOC: ER 18:04
DX: I16.0 Hypertensive urgency (principal); F41.9 Anxiety disorder, unspecified; F32.9 Major depressive disorder, single episode, unspecified; E11.9 Type 2 diabetes mellitus without complications; F17.210 Nicotine dependence, cigarettes, uncomplicated; Z86.73 Personal history of transient ischemic attack (TIA), and cerebral infarction without residual deficits; Z88.1 Allergy status to other antibiotic agents
CPT/HCPCS: 36415; 70450; 71045; 80053; 81001; 82553; 83690; 83735; 84484; 85025; 85610; 85730; 93005; 99285; J7040

== ENCOUNTER 2020-06-11 16:32 | Inpatient (IN) | payer MEDICARE ==
[~2020-06-11] VITALS: Ht 170.2 cm; Wt 73.8 kg
[~2020-06-11 16:32] MED LIST changes: +CLON0.1T PO
[2020-06-11] MEDS ORDERED: IOHEXOL 350 MG/ML 100 ML VIAL. IV ONE (16:45)
--- NOTE | 2020-06-11 16:45 | RAD ---
EXAM: CT Head without IV contrast INDICATION: Reason: CONFUSION, HX OF ANEURSYM / Spl. Instructions: / History: TECHNIQUE: Multi-detector row CT images were obtained of the head without the use of IV contrast. All CT scans performed at this facility utilize dose optimization techniques as appropriate to the exam, including the following: Automated exposure control and adjustment of the mA and/or KV according to patient size (this includes techniques or standardized protocols for targeted exams where dose is indication/reason for exam). COMPARISON: 04/16/[address] FINDINGS: BRAIN PARENCHYMA: No evidence of acute intraparenchymal hemorrhage or infarct. Chronic lacunar infarct in the right basal ganglia is redemonstrated. Mild generalized parenchymal volume loss also noted. VENTRICLES & EXTRA-AXIAL SPACES: Ventricles are within normal limits. Basilar cisterns are patent. No pathologic extra-axial fluid collection or mass. Stent in the left supraclinoid ICA redemonstrated. ORBITS: Orbital contents are unremarkable. SINUSES: Visualized paranasal sinuses and mastoid air cells are clear. OSSEOUS & SOFT TISSUES: Calvarium and skull base are intact. IMPRESSION: No acute intracranial pathology. FOR INTERNAL CODING PURPOSES Critical result: Findings discussed with DIANELYS WAGNER at 06/11/2020 4:41 PM. RESULT CODE: (C) Electronically signed by: Cristy Asher MD (06/11/2020 4:42 PM) [id number]
--- NOTE | 2020-06-11 16:48 | PHYS DOC ---
Past History Past Medical History: Anxiety, Cancer, CVA, Depression, Diabetes, Hypertension, Other Past Surgical History: Cancer Surgery, Hysterectomy, Tonsillectomy Smoking: Cigarettes Alcohol Use: None Drug Use: None Adult General Chief Complaint Chief Complaint: NEURO SYMPTOMS/DEFICITS [facility] HPI Patient is a 75-year-old female who presents via EMS for neuro complaints. Onset was at 9 AM this morning. Patient with history of CVA and cerebral aneurysm reported waking up and texting daughter. Patient reportedly having difficulty with accurately typing which she was thinking, reports having word salad texts which were unclear and concern daughter. Patient reported mild headache and generalized confusion at this time with no other symptoms. Patient subsequently had EMS called by daughter for transport to our facility for further evaluation on assessment greater than 4 hours after initial onset later in the day. Of note, only new medication change reported by patient was recent start of hydrochlorothiazide within the past 7 days. Patient otherwise denies any fever, COVID-19 contacts, concerning ingestions or exposures, long distance travel, falls or syncope Review of Systems Review of Systems Fourteen body systems of review of systems have been reviewed. See HPI for pertinent positives and negative responses, other whyte all other systems are negative, non-pertinent or non-contributory Current Medications Current Medications Current Medications Medications (Trade) Dose Ordered Sig/Antonio Start Time Stop Time Status Last Admin Dose Admin Iohexol (Omnipaque 350 Mg/ml) 100 ml 1X ONCE 06/11/20 16:45 06/11/20 16:46 DC Allergies Allergies Allergies Coded Allergies Type Severity Reaction Last Updated Verified erythromycin base Allergy Unknown 12/16/18 Yes Uncoded Allergies Type Severity Reaction Last Updated Verified ANY DYE Allergy Unknown 12/16/18 Physical Exam Physical Exam Constitutional: Pt is oriented to person, place, and time. Pt appears well- developed and well-nourished. Hard of hearing HENT: Head: Normocephalic and atraumatic. Mouth/Throat: Oropharynx is clear and moist. No hematomas or lacerations or abrasions to face or scalp OP clear, no blood, no malocclusion, dentition intact Nares clear, no nasal septal hematoma TMs clear, no hemotympanum Midface stable Eyes: Conjunctivae and EOM are normal. Pupils are equal, round, and reactive to light. Neck: C-spine midline nontender, no step-offs Cardiovascular: Normal rate, regular rhythm and normal heart sounds. Pulmonary/Chest: Effort normal and breath sounds normal. No respiratory distress. No wheezes. CTA bilaterally Abdominal: Soft. Bowel sounds are normal. Pt exhibits no distension. There is no tenderness. Musculoskeletal: No bony tenderness to extremities, no deformities, full ROM extremities Chest wall stable Pelvis stable and non-tender No vertebral TTP and spine without stepoffs Neurological: Pt is alert and oriented to person, place, and time. Moving all extremities willfully, able to wiggle all fingers and toes Alert and oriented x 3 Sensation grossly intact Skin: Skin is warm and dry. No abrasions, no lacerations Psychiatric: Behavior is appropriate for situation Nursing note and vitals reviewed. Current Patient Data Vital Signs Vital Signs Date Time Temp Pulse Resp B/P (MAP) Pulse Ox O2 Delivery O2 Flow Rate FiO2 06/11/20 17:14 98.1 78 18 153/70 (97) 100 Lab Results Laboratory Tests Test 06/11/20 17:00 White Blood Count 13.1 x10^3/uL (4.0-11.0) Red Blood Count 4.43 x10^6/uL (3.50-5.40) Hemoglobin 14.2 g/dL (12.0-15.5) Hematocrit 40.5 % (36.0-47.0) Mean Corpuscular Volume 91 fL (79-100) Mean Corpuscular Hemoglobin 32 pg (25-35) Mean Corpuscular Hemoglobin Concent 35 g/dL (31-37) Red Cell Distribution Width 12.5 % (11.5-14.5) Platelet Count 228 x10^3/uL (140-400) Neutrophils (%) (Auto) 86 % (31-73) Lymphocytes (%) (Auto) 8 % (24-48) Monocytes (%) (Auto) 6 % (0-9) Eosinophils (%) (Auto) 0 % (0-3) Basophils (%) (Auto) 0 % (0-3) Neutrophils # (Auto) 11.3 x10^3uL (1.8-7.7) Lymphocytes # (Auto) 1.1 x10^3/uL (1.0-4.8) Monocytes # (Auto) 0.7 x10^3/uL (0.0-1.1) Eosinophils # (Auto) 0.0 x10^3/uL (0.0-0.7) Basophils # (Auto) 0.0 x10^3/uL (0.0-0.2) Prothrombin Time 10.4 SEC (9.4-11.4) Prothromb Time International Ratio 1.0 (0.9-1.1) Activated Partial Thromboplast Time 25 SEC (23-33) Sodium Level 124 mmol/L (136-145) Potassium Level 3.9 mmol/L (3.5-5.1) Chloride Level 88 mmol/L (98-107) Carbon Dioxide Level 26 mmol/L (21-32) Anion Gap 10 (6-14) Blood Urea Nitrogen 12 mg/dL (7-20) Creatinine 1.0 mg/dL (0.6-1.0) Estimated GFR (Cockcroft-Gault) 54.3 BUN/Creatinine Ratio 12 (6-20) Glucose Level 186 mg/dL (70-99) Calcium Level 9.2 mg/dL (8.5-10.1) Total Bilirubin 0.5 mg/dL (0.2-1.0) Aspartate Amino Transf (AST/SGOT) 12 U/L (15-37) Alanine Aminotransferase (ALT/SGPT) 23 U/L (14-59) Alkaline Phosphatase 70 U/L (46-116) Troponin I Quantitative < 0.017 ng/mL (0-0.055) Total Protein 6.7 g/dL (6.4-8.2) Albumin 3.6 g/dL (3.4-5.0) Albumin/Globulin Ratio 1.2 (1.0-1.7) EKG EKG EKG ordered and interpreted by myself at 1711 hrs. as sinus rhythm at 79 bpm, unremarkable intervals, no axis deviation, no acute ischemic findings, no STEMI Radiology/Procedures Radiology/Procedures PROCEDURE: CT CODE STROKE HEAD WO EXAM: CT Head without IV contrast INDICATION: Reason: CONFUSION, HX OF ANEURSYM / Spl. Instructions: / History: TECHNIQUE: Multi-detector row CT images were obtained of the head without the use of IV contrast. All CT scans performed at this facility utilize dose optimization techniques as appropriate to the exam, including the following: Automated exposure control and adjustment of the mA and/or KV according to patient size (this includes techniques or standardized protocols for targeted exams where dose is indication/reason for exam). COMPARISON: 04/16/[address] FINDINGS: BRAIN PARENCHYMA: No evidence of acute intraparenchymal hemorrhage or infarct. Chronic lacunar infarct in the right basal ganglia is redemonstrated. Mild generalized parenchymal volume loss also noted. VENTRICLES & EXTRA-AXIAL SPACES: Ventricles are within normal limits. Basilar cisterns are patent. No pathologic extra-axial fluid collection or mass. Stent in the left supraclinoid ICA redemonstrated. ORBITS: Orbital contents are unremarkable. SINUSES: Visualized paranasal sinuses and mastoid air cells are clear. OSSEOUS & SOFT TISSUES: Calvarium and skull base are intact. IMPRESSION: No acute intracranial pathology. FOR INTERNAL CODING PURPOSES Critical result: Findings discussed with DIANELYS WAGNER at 06/11/2020 4:41 PM. RESULT CODE: (C) PROCEDURE: CT ANGIOGRAPHY HEAD AND NECK EXAM: CT Angiogram of the Head and Neck INDICATION: Reason: NEURO DEFICITS / Spl. Instructions: / History: TECHNIQUE: CT images were obtained through the head per standard CTA protocol. Multiplanar and 3D reformatted images were generated from the CT dataset on an independent workstation. All CT scans performed at this facility utilize dose optimization techniques as appropriate to the exam, including the following: Automated exposure control and adjustment of the mA and/or KV according to patient size (this includes techniques or standardized protocols for targeted exams where dose is indication/reason for exam). IV CONTRAST: Administered COMPARISON: Noncontrast head CT same day FINDINGS: CTA HEAD: No high-grade large vessel stenosis, proximal or branch vessel occlusion, aneurysm, or vascular malformation. Left supraclinoid ICA stent is redemonstrated. ANTERIOR CIRCULATION: Anterior and middle cerebral arteries are widely patent. ANTERIOR COMMUNICATING ARTERY: Not well seen and may be diminutive or absent. POSTERIOR COMMUNICATING ARTERIES: Present on the right. Diminutive on the left. POSTERIOR CIRCULATION: Vertebral and basilar arteries are widely patent. Bilateral posterior inferior cerebellar arteries (PICAs), anterior inferior cerebellar arteries (AICAs), and superior cerebellar arteries (SCAs) are visualized and patent. Posterior cerebral arteries are patent. OTHER: No abnormal brain parenchymal enhancement. The paranasal sinuses, mastoid air cells, and tympanic cavities are clear. 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 NECK CTA: AORTA: 3 vessel configuration of arch. No dissection or acute aortic injury. No hemodynamically significant great vessel origin stenosis. There is mixed calcified and noncalcified plaque in the distal left common carotid artery resulting in less than 50 percent stenosis (image 560 of series 7). Both proximal cervical internal carotid arteries are tortuous and show a retropharyngeal course. RIGHT CAROTID: Common and internal carotid arteries are widely patent, without evidence of flow limiting stenosis or dissection. LEFT CAROTID: Common and internal carotid arteries are widely patent, without evidence of flow limiting stenosis or dissection. VERTEBRAL ARTERIES: Codominant. No evidence of dissection or flow limiting stenosis. SUBCLAVIAN ARTERIES:Subclavian arteries are patent without stenosis. SOFT TISSUES: Low-density lesions in the thyroid gland bilaterally are suggestive of thyroid nodules. These be better evaluated on an elective basis with thyroid ultrasound if warranted. Lung apices are clear. Where applicable, evaluation of ICA stenosis was performed using NASCET criteria, where the site of greatest stenosis is compared to the diameter of the ICA distal to the carotid bulb. IMPRESSION: No hemodynamically significant stenosis on CTA of the head and neck, status post left supraclinoid ICA stenting. There is less than 50 percent stenosis in the distal left common carotid artery from mixed calcified and noncalcified plaque. FOR INTERNAL CODING PURPOSES Critical result: Findings discussed with DIANELYS WAGNER at 06/11/2020 5:15 PM. RESULT CODE: (C) PROCEDURE: CHEST AP ONLY EXAMINATION: CHEST AP ONLY CLINICAL HISTORY: Code stroke, altered mental status EXAM DATE/TIME: 06/11/2020 4:53 PM COMPARISON: 04/16/2020 FINDINGS: Lines, tubes, and devices: None. Cardiomediastinal silhouette: Normal heart size. Lungs and pleura: Pulmonary hypoexpansion with patchy and reticular opacities throughout bilateral lungs. Relatively ill-defined bilateral perihilar pulmonary vasculature suggestive of edema. Bones and soft tissues: Bilateral axillary surgical clips. IMPRESSION: Findings compatible with mild pulmonary edema, superimposed infection not excluded. Electronically signed by: Jose Mcbride DO (06/11/2020 5:43 PM) [id number] Course & Med Decision Making Course & Med Decision Making Patient seen and evaluated on immediate arrival to ER via EMS Code stroke initiated, NIHSS [address] scan for patient outside window of TPA but within 24-hour window of potential clot retrieval if indicated Patient brought back to examination room and comprehensive history and physical exam obtained, subsequent diagnostic studies ordered Patient grossly asymptomatic but remains confused. Discussed findings with patient and daughter, discussed findings of hyponatremia in setting of recently started hydrochlorothiazide in the past 7 days as most likely diagnosis Discussed need for admission for continued observation and medical management in hospital setting, I believe patient would benefit from inpatient neurology consultation, patient and daughter are amenable On-call hospitalist, Dr. Tineo, contacted and case discussed. He agreed to admission at [facility] for continued medical care in inpatient setting This decision was communicated with patient and daughter who were again amenable. All questions and concerns addressed prior to transport via EMS to [facility] for further medical management Dragon Disclaimer Dragon Disclaimer This electronic medical record was generated, in whole or in part, using a voice recognition dictation system. NIH Stroke Scale: NIH Stroke Scale Response (Comments) Value Level of Consciousness: 0 Alert/Responsive 0 LOC Questions: 0 Answers both correctly 0 LOC Commands: 0 Performs both tasks 0 Best Gaze: 0 Normal 0 Visual: 0 No visual loss 0 Facial Palsy: 0 Normal, symmetrical 0 Motor - Left Arm 0 No drift 0 Motor - Right Arm 0 No drift 0 Motor - Left Leg 0 No drift 0 Motor: Right Leg 0 No drift 0 Limb Ataxia: 0 Absent 0 Sensory: 0 No loss 0 Best Language: 0 Normal 0 Dysathria: 0 Normal 0 Extinction and Inattention: 0 Normal 0 Total 0 Departure Departure: Impression: Primary Impression: Hyponatremia Additional Impression: Transient ischemic attack (TIA) Disposition: 09 ADMITTED INPATIENT ([facility]) Admitting Physician: Gareth Tineo Condition: STABLE Referrals: PCP,UNKNOWN (PCP) Justification of Admission: Justification of Admission: Justification of Admission Dx: Yes (Symptomatic hyponatremia) Problem Qualifiers DIANELYS WAGNER DO Jun 11, 2020 16:48
--- NOTE | 2020-06-11 17:14 | EKG ---
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
--- NOTE | 2020-06-11 17:21 | RAD ---
EXAM: CT Angiogram of the Head and Neck INDICATION: Reason: NEURO DEFICITS / Spl. Instructions: / History: TECHNIQUE: CT images were obtained through the head per standard CTA protocol. Multiplanar and 3D reformatted images were generated from the CT dataset on an independent workstation. All CT scans performed at this facility utilize dose optimization techniques as appropriate to the exam, including the following: Automated exposure control and adjustment of the mA and/or KV according to patient size (this includes techniques or standardized protocols for targeted exams where dose is indication/reason for exam). IV CONTRAST: Administered COMPARISON: Noncontrast head CT same day FINDINGS: CTA HEAD: No high-grade large vessel stenosis, proximal or branch vessel occlusion, aneurysm, or vascular malformation. Left supraclinoid ICA stent is redemonstrated. ANTERIOR CIRCULATION: Anterior and middle cerebral arteries are widely patent. ANTERIOR COMMUNICATING ARTERY: Not well seen and may be diminutive or absent. POSTERIOR COMMUNICATING ARTERIES: Present on the right. Diminutive on the left. POSTERIOR CIRCULATION: Vertebral and basilar arteries are widely patent. Bilateral posterior inferior cerebellar arteries (PICAs), anterior inferior cerebellar arteries (AICAs), and superior cerebellar arteries (SCAs) are visualized and patent. Posterior cerebral arteries are patent. OTHER: No abnormal brain parenchymal enhancement. The paranasal sinuses, mastoid air cells, and tympanic cavities are clear. 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 NECK CTA: AORTA: 3 vessel configuration of arch. No dissection or acute aortic injury. No hemodynamically significant great vessel origin stenosis. There is mixed calcified and noncalcified plaque in the distal left common carotid artery resulting in less than 50 percent stenosis (image 560 of series 7). Both proximal cervical internal carotid arteries are tortuous and show a retropharyngeal course. RIGHT CAROTID: Common and internal carotid arteries are widely patent, without evidence of flow limiting stenosis or dissection. LEFT CAROTID: Common and internal carotid arteries are widely patent, without evidence of flow limiting stenosis or dissection. VERTEBRAL ARTERIES: Codominant. No evidence of dissection or flow limiting stenosis. SUBCLAVIAN ARTERIES:Subclavian arteries are patent without stenosis. SOFT TISSUES: Low-density lesions in the thyroid gland bilaterally are suggestive of thyroid nodules. These be better evaluated on an elective basis with thyroid ultrasound if warranted. Lung apices are clear. Where applicable, evaluation of ICA stenosis was performed using NASCET criteria, where the site of greatest stenosis is compared to the diameter of the ICA distal to the carotid bulb. IMPRESSION: No hemodynamically significant stenosis on CTA of the head and neck, status post left supraclinoid ICA stenting. There is less than 50 percent stenosis in the distal left common carotid artery from mixed calcified and noncalcified plaque. FOR INTERNAL CODING PURPOSES Critical result: Findings discussed with DIANELYS WAGNER at 06/11/2020 5:15 PM. RESULT CODE: (C) Electronically signed by: Cristy Asher MD (06/11/2020 5:18 PM) [id number]
[2020-06-11 17:24] LABS: BASO % 0 % (0-3); EOS % 0 % (0-3); HEMATOCRIT 40.5 % (36.0-47.0); HEMOGLOBIN 14.2 g/dL (12.0-15.5); LYMPH # 1.1 x10^3/uL (1.0-4.8); LYMPH % 8 % (24-48); MEAN CORPUSCULAR HEMOGLOBIN 32 pg (25-35); MEAN CORPUSCULAR HGB CONC 35 g/dL (31-37); MEAN CORPUSCULAR VOLUME 91 fL (79-100); MONO # 0.7 x10^3/uL (0.0-1.1); MONO % 6 % (0-9); NEUT # 11.3 x10^3uL (1.8-7.7); NEUT % 86 % (31-73); PLATELET COUNT 228 x10^3/uL (140-400); RED BLOOD COUNT 4.43 x10^6/uL (3.50-5.40); RED CELL DISTRIBUTION WIDTH 12.5 % (11.5-14.5); WHITE BLOOD COUNT 13.1 x10^3/uL (4.0-11.0)
[2020-06-11 17:26] LABS: CALCIUM 9.2 mg/dL (8.5-10.1); GFR 54.3; POTASSIUM 3.9 mmol/L (3.5-5.1)
[2020-06-11 17:31] LABS: ALBUMIN 3.6 g/dL (3.4-5.0); ALBUMIN/GLOBULIN RATIO 1.2 (1.0-1.7); TOTAL BILIRUBIN 0.5 mg/dL (0.2-1.0); TOTAL PROTEIN 6.7 g/dL (6.4-8.2)
--- NOTE | 2020-06-11 17:46 | RAD ---
EXAMINATION: CHEST AP ONLY CLINICAL HISTORY: Code stroke, altered mental status EXAM DATE/TIME: 06/11/2020 4:53 PM COMPARISON: 04/16/2020 FINDINGS: Lines, tubes, and devices: None. Cardiomediastinal silhouette: Normal heart size. Lungs and pleura: Pulmonary hypoexpansion with patchy and reticular opacities throughout bilateral lungs. Relatively ill-defined bilateral perihilar pulmonary vasculature suggestive of edema. Bones and soft tissues: Bilateral axillary surgical clips. IMPRESSION: Findings compatible with mild pulmonary edema, superimposed infection not excluded. Electronically signed by: Jose Mcbride DO (06/11/2020 5:43 PM) [id number]
[2020-06-11] MEDS ORDERED: IV NORMAL SALINE 1,000ML 1,000 ML IV ONE (18:15)
[2020-06-11 19:47] VITALS: BP 162/81
--- NOTE | 2020-06-11 22:12 | NUR ---
PT presented at ER with AMS. At time of arrival on unit, PT fully alert and oriented. PT is very hard of hearing. PT stated she was very confused today when texting family which prompted family calling EMS. Reviewed with PT her PMH, PSH, SH, FH and medications. PT brought her medications with her. PT had a bilateral mastectomy with lymphadenopathy in December of this year.
[2020-06-11 22:53] VITALS: BP 138/75
[2020-06-12 06:02] VITALS: BP 110/65
[2020-06-12] MEDS ORDERED: CETIRIZINE HCL 10 MG TABLET PO PRN (09:00)
[2020-06-12] MEDS ORDERED: CALCIUM CARBONATE 500 MG TAB.CHEW PO PRN (09:45)
[2020-06-12] MEDS ORDERED: cloNIDine HCL 0.1 MG TABLET PO PRN (09:45)
[2020-06-12 10:04] LABS: CALCIUM 8.8 mg/dL (8.5-10.1); CREATININE 0.9 mg/dL (0.6-1.0); GFR 61.4
[2020-06-12] MEDS ORDERED: LISINOPRIL 10 MG TABLET PO SCH (10:15)
--- NOTE | 2020-06-12 10:18 | HP ---
ADMIT DATE: 06/11/2020 ATTENDING PHYSICIAN: Dr. Koch. CHIEF COMPLAINT: Confusion. HISTORY OF PRESENT ILLNESS: The patient is a 75-year-old female brought into the ED, family brought her in with a 2-day history of difficulty finding her words. She had a word salad attacks unclear, generalized confusion and altered mentation. Recently, she was started on hydrochlorothiazide. Her serum sodium was down to 124 mEq. She has had previous strokes. Her CT of the head demonstrated no acute changes. There is chronic lacunar infarct in right basal ganglia, mild generalized parenchymal volume loss is noted. There is no acute stroke or bleed. She had a CT angiogram of the neck, which showed that her large vessels were patent without any significant stenosis or aneurysm. She has previously had a stent placed intracranially. She was admitted then for further evaluation and treatment of hyponatremia. She denied any recent COVID-19 contact, fevers or chills. Unfortunately, she continues to smoke regularly. PAST MEDICAL HISTORY: Significant for generalized anxiety, hypertension, type 2 diabetes, old CVA, and COPD. PAST SURGICAL HISTORY: Unspecified cancer surgery, hysterectomy and tonsillectomy. CURRENT MEDICINES AT HOME: Reviewed. She was on hydrochlorothiazide, loratadine, clonidine, metoprolol 200 mg daily, lisinopril, Ultram, Imitrex p.r.n., Protonix, eye drops and calcium carbonate. ALLERGIES: SHE HAS ALLERGIES TO CONTRAST DYE AND ERYTHROMYCIN. SOCIAL HISTORY: Smoking history as noted. No alcohol use. FAMILY HISTORY: Father of lung cancer at age 62. Mom of old age at age 85. SOCIAL HISTORY: She is retired. A daughter has been with her. REVIEW OF SYSTEMS: Significant for the confusion, word salad. No visual disturbances. She is very hard of hearing. No nausea or vomiting. All other systems reviewed and turned to be negative. PHYSICAL EXAMINATION: GENERAL: When I saw her, this is a pleasant female who is very hard of hearing. VITAL SIGNS: Initial blood pressure was 138/75 mmHg, pulse 67 and regular, temperature 98.0 degrees Fahrenheit, oxygen saturation 95% on room air. HEENT: Head is without trauma. Pupils are reactive. Sclerae nonicteric. Oropharynx is clear. NECK: Supple, no bruits identified. LUNGS: Fairly good breath sounds. CARDIOVASCULAR: Showed regular heart tones. No gallops. Peripheral pulses are palpable and full. ABDOMEN: Soft, scaphoid, nontender, no organomegaly. Hypoactive bowel sounds. EXTREMITIES: Showed no cyanosis or edema. NEUROLOGIC: The patient's speech is fluent. She does not have any slurring. She is very hard of hearing. She has no focal deficits. Facing Machine Operator in upper extremity were intact. Tendon reflexes were intact and symmetrical. IMAGING STUDIES: As described. No acute strokes or bleeds identified. PERTINENT LABORATORY STUDIES: White count of 13,100, hemoglobin 14.2 g/dL. The serum sodium was 124 mEq per liter. The chloride is concomitantly low at 88 mEq/L, potassium 3.9 mEq, creatinine 1.0. Nonfasting blood sugar 186 mg/dL. Troponins were negative. Transaminases and bilirubin were normal. ASSESSMENT: 1. This 75-year-old female had an episode of transient ischemic attack with slurred speech, no acute stroke was identified. 2. Old cerebrovascular accident with stent intracranially. 3. Hyponatremia due to diuretics. 4. Labile hypertension. 5. Chronic obstructive pulmonary disease with continued tobacco use. 6. Generalized anxiety and depression. PLAN: 1. Admit to the inpatient unit. 2. Gentle IV hydration with saline. 3. Diuretics have been held. 4. Neurology consultation for recommendation. 5. Continue blood pressure meds. 6. Serial chemistries. 7. Diet as tolerated. ELVIA KOCH MD DR: SERGIO/ephraim JOB#: [id number] / [id number]
[2020-06-12] MEDS: IV NORMAL SALINE 1,000ML 1,000 ML IV SCH (10:35)
[2020-06-12 11:12] VITALS: BP 128/70
--- NOTE | 2020-06-12 11:59 | CONS ---
DATE OF CONSULTATION: NEUROLOGIC CONSULTATION REFERRING PHYSICIAN: Dr. Tineo. REASON FOR CONSULTATION: Confusion and difficulty to speak. HISTORY OF PRESENT ILLNESS: This is a 75-year-old right-handed female who was admitted through Emergency Room last night after she presented with a 2-day history of confusion and difficulty to find words. According to the symptoms started the day before yesterday when she tried to text her daughter, she could not write or find a word to text. She became very confused and disoriented. The symptoms lasted all day long yesterday, associated with mild frontal headaches. She denies weakness or paresthesia, chest pain, shortness of breath or palpitation, dysarthria or dysphagia. The patient has been on diuretic as hydrochlorothiazide in the last week. EMS was activated by her daughter and transferred the patient to Emergency Room for further evaluation. In the Emergency Room, her highest blood pressure was 162/81. Initial nonenhanced head CT scan revealed no evidence of acute intracranial process; however, it showed stent in the left supraclinoid internal carotid artery. The patient was found to have hyponatremia with sodium of 124. She was placed for hyponatremia correction and observation. PAST MEDICAL HISTORY: Significant for migraine headaches for 40 years, severe bilateral hearing loss, history of small brain aneurysm, required stenting procedure before rupture 5 years ago; breast cancer, depression, anxiety, smoking, migraine headaches, bilateral severe hearing loss and decreased vision bilaterally. PAST SURGICAL HISTORY: Significant for brain stenting procedure 5 years ago, hysterectomy, bilateral radical mastectomy, hysterectomy, left femur and bilateral feet and wrist surgeries. SOCIAL HISTORY: The patient is a smoker. She denies alcohol drinking or illicit drug use. FAMILY HISTORY: Father had lung cancer. Brother had kidney cancer. Mother, diverticulitis and coronary artery disease. ALLERGIES: ANY DYE, ERYTHROMYCIN. CURRENT HOME MEDICATIONS: Tums, clonidine 0.1 mg b.i.d., latanoprost eye drops, loratadine 10 mg 1 tablet daily, metoprolol succinate, sumatriptan 50 mg at the onset of migraine headaches and tramadol 50 mg q. 6 hours p.r.n. for severe pain and headaches. PHYSICAL EXAMINATION: GENERAL: Well-developed, well-nourished female, not in acute distress. She weighs 73.8 kilos. VITAL SIGNS: Blood pressure 110/65, respiratory rate 18, pulse is 57, regular, oxygen saturation is 94%, temperature 98.2. HEENT: Normocephalic, atraumatic, otherwise unremarkable. NECK: Supple. Negative for carotid bruit, lymphadenopathy or thyromegaly. LUNGS: Clear to A and P. CARDIOVASCULAR: Regular rate and rhythm, normal S1, S2. There is no S3, S4 or murmur. ABDOMEN: Soft. Bowel sounds positive. EXTREMITIES: Negative for cyanosis, clubbing or edema. NEUROLOGIC: Mental status: The patient is alert and oriented x 3. Speech is fluent. There is no language dysfunction. Memory, judgment, and abstract thinking are fair. The patient denies hallucination or delusion. CRANIAL NERVES: Visual comer are full. The pupils are reactive to light and accommodation. The extraocular movements are intact. There is no nystagmus. There is no facial motor or sensory deficit. Hearing is significantly diminished bilaterally. The palate is elevated symmetrically. Sternocleidomastoid muscles are powerful bilaterally. The patient shrugs her shoulders symmetrically, protrudes her tongue in the midline without fasciculation or atrophy. MOTOR: Revealed no focal muscle bulk was seen. The tone is normal. The strength is 5/5 throughout. SENSORY: Revealed normal pinprick, light touch, vibratory and position senses. Deep tendon reflexes were symmetric and active without pathologic responses. Gait and coordination are normal. LABORATORY DATA: [place] [id number], hemoglobin 14.2, hematocrit 40.5, platelet count 228,000. Chemistry revealed sodium of 124, potassium 3.9, chloride 88, CO2 of 26, BUN 12, creatinine 1, glucose 186, calcium 9.2. Liver enzymes not elevated. Troponin level is normal. Articulation, the PT is 10.4 and PTT is 25. DIAGNOSTIC DATA: CT scan revealed evidence of left supraclinoid internal carotid artery stent placement, otherwise unremarkable. CT angio of the neck and brain otherwise unremarkable. Chest x-ray revealed mild pulmonary edema, otherwise, superimposed infection could not be excluded. IMPRESSION: 1. Acute onset of encephalopathy, probably metabolic secondary to hyponatremia. 2. Multiple medical problems include hypertension, bilateral severe hearing loss, depressions, anxiety, and intermittent migraine headaches. Correct the underlying hyponatremia slowly. RECOMMENDATIONS: 1. Continue with current management initiated by Dr. Tineo. 2. Slowly correction of hyponatremia with normal study and watch of any development for systemic infections and rule out pneumonia. Check urinalysis. M Sarina MICHAUD MD DR: LORA/ephraim JOB#: [id number] / [id number]
[2020-06-12] MEDS: METOPROLOL SUCC 24HR ER 50 MG TAB.ER.24H. PO SCH (12:09)
[2020-06-12] MEDS ORDERED: AMLO5TAB10 PO (12:32)
[2020-06-12] MEDS ORDERED: ESCI10TA2 PO (12:32)
[2020-06-12] MEDS ORDERED: ANAS1TAB47 PO (12:32)
[2020-06-12] MEDS ORDERED: LISI40TA PO (12:32)
[2020-06-12 15:30] VITALS: BP 121/69
[2020-06-12] MEDS: LISINOPRIL 10 MG TABLET PO SCH (17:06)
[2020-06-12] MEDS: LATANOPROST 0.005% OPHTH SOLUTION 2.5ML BOTTLE. OU SCH (17:06)
[2020-06-12 19:31] VITALS: BP 137/80
[2020-06-12 23:00] VITALS: BP 152/73
[2020-06-13] MEDS: IV NORMAL SALINE 1,000ML 1,000 ML IV SCH (00:05)
[2020-06-13 05:47] VITALS: BP 143/80
[2020-06-13] MEDS: LISINOPRIL 10 MG TABLET PO SCH (08:50)
[2020-06-13] MEDS: LATANOPROST 0.005% OPHTH SOLUTION 2.5ML BOTTLE. OU SCH (08:50)
[2020-06-13 08:51] VITALS: BP 143/80
[2020-06-13] MEDS: METOPROLOL SUCC 24HR ER 50 MG TAB.ER.24H. PO SCH (08:51)
--- NOTE | 2020-06-13 09:49 | DS ---
DATE OF DISCHARGE: 06/13/2020 ATTENDING PHYSICIAN: Dr. Koch. FINAL DISCHARGE DIAGNOSES: 1. Transient ischemic attack, symptoms resolved. 2. Generalized confusion and altered mentation, resolved. 3. Hyponatremia due to diuretics. 4. Labile hypertension. 5. Type 2 diabetes. 6. Chronic obstructive pulmonary disease. 7. Generalized anxiety. 8. History of cerebral aneurysm with a stent in the inferior carotid artery. HISTORY OF PRESENT ILLNESS: This is a 75-year-old female admitted with a 2-day history of difficulty finding words, word salad confusion. She was also recently started on hydrochlorothiazide and her serum sodium on admission was 124 mEq. She has had previous strokes. CT of the head demonstrated no acute bleeds or infarcts. She was admitted for further treatment and evaluation. PHYSICAL EXAMINATION: Please see the dictated note. PERTINENT LABORATORY AND X-RAY STUDIES: Imaging studies showed that the CT of the head showed no acute strokes or bleeds. There is presence of a stent in the right inferior cerebellar artery. LABORATORY STUDIES: Hemoglobin was 14.2 g/dL, white count 13,000. Initial sodium was 124. This was replaced up to 135 mEq slowly and she was improved at the time of discharge, potassium was 4.0 mEq, nonfasting blood sugar 134, and her creatinine was 0.9 mg percent. COURSE IN THE HOSPITAL: The patient was admitted. She was monitored. We stopped her hydrochlorothiazide. She was given careful hydration with saline. Follow up electrolytes improved and her sodium was up to 135 mEq per liter. She was well. Clinically, she remains very hard of hearing. She was seen in consultation by Dr. Hopkins in the Neurology services. His recommendation is conservative and followup as an outpatient. I recommended at this time one baby aspirin if she can tolerate it. On the third hospital day, her vital signs were quite stable. Her gait was intact. Blood pressure was 143/80, temperature was 97.9, pulse was regular. Her oxygen saturation was 95% on room air. She was ready for discharge. At this time, her home meds are basically unchanged. They include the following: She should continue her amlodipine 5 mg daily, Arimidex daily, calcium carbonate p.r.n., Lexapro, latanoprost eyedrops, lisinopril 40 mg daily, loratadine, metoprolol 200 mg b.i.d. p.r.n., Imitrex and tramadol p.r.n. pain. We suggested a baby aspirin 81 mg daily. In addition, she should follow up with Dr. Hopkins as an outpatient. The patient was then discharged from our hospital in stable condition with explicit instructions and followup care. Total discharge time spent is 39 minutes. ELVIA KOCH MD DR: SERGIO/ephraim JOB#: [id number] / [id number]
--- NOTE | 2020-06-13 11:17 | NUR ---
Reviewed discharge instructions with patient including medications and follow up appts. Pt verbalized understanding. PIV was removed. Pt left with all belongings including cellphone, purse, medications x6 bottles, clothing and shoes. Pt left unit via wheelchair to personal vehicle driven by her daughters at 1117.
--- NOTE | 2020-06-13 14:32 | PN ---
DATE: REFERRING PHYSICIAN: Dr. Tineo. SUBJECTIVE: The patient denies any new medical or neurological complaints. She denies headaches, visual disturbances, nausea, vomiting, chest pain, shortness of breath or palpitation, dysarthria or dysphagia. OBJECTIVE: GENERAL: Well-developed, well-nourished female, not in acute distress. VITAL SIGNS: Blood pressure 143/80, respiratory rate 20, pulse is 65, temperature is 97.9, oxygen saturation is 95% on room air. HEENT: Normocephalic, atraumatic, otherwise unremarkable. NECK: Supple. Negative for carotid bruit, lymphadenopathy or thyromegaly. LUNGS: Clear to A and P. CARDIOVASCULAR: Regular rate and rhythm, normal S1, S2. There is no S3, S4 or murmur. ABDOMEN: Soft. Bowel sounds positive. EXTREMITIES: Negative for cyanosis, clubbing or edema. NEUROLOGICAL EXAM: Mental Status: The patient is alert and oriented x 3. Speech is fluent. There is no language dysfunction. Memory, judgment, and abstract thinking are fair. The patient denies hallucination or delusion. Cranial nerves are intact except for bilateral severe hearing loss. No focal motor or sensory deficit. Deep tendon reflexes were symmetric and active without pathology responses. Gait and coordination are normal. LABORATORY DATA: Chemistry from yesterday revealed sodium of 135, potassium 4, chloride 99, CO2 of 26, BUN 9, creatinine 0.9, glucose 134, and calcium 8.8. IMPRESSION: 1. Acute encephalopathy, probably metabolic -- improved. 2. Multiple medical problems include hypertension, depression, anxiety, migraine headaches and hyponatremia, which was corrected. 3. Intermittent confusion. RECOMMENDATIONS: 1. Continue with current conservative management initiated by Dr. Tineo. 2. Continue with aspirin 81 mg daily. 3. Follow up with Dr. Michaud on an outpatient basis to have a complete workup for dementia, including electroencephalogram. M Sarina MICHAUD MD DR: LORA/ephraim JOB#: [id number] / [id number]
== END 2020-06-13 11:17 | disposition home or self-care (01) | DRG 69 ==
LOC: ER 16:32 → 1 SOUTH 18:00
PROVIDERS: ADMIT Hospitalist; ATTEND Hospitalist
DX: G45.9 Transient cerebral ischemic attack, unspecified (principal); E87.1 Hypo-osmolality and hyponatremia; G93.40 Encephalopathy, unspecified; E11.9 Type 2 diabetes mellitus without complications; F17.200 Nicotine dependence, unspecified, uncomplicated; F32.9 Major depressive disorder, single episode, unspecified; F41.1 Generalized anxiety disorder; G43.909 Migraine, unspecified, not intractable, without status migrainosus; H54.7 Unspecified visual loss; H91.93 Unspecified hearing loss, bilateral; I10 Essential (primary) hypertension; J44.9 Chronic obstructive pulmonary disease, unspecified; T50.2X5A Adverse effect of carbonic-anhydrase inhibitors, benzothiadiazides and other diuretics, initial encounter; Z79.899 Other long term (current) drug therapy; Z80.1 Family history of malignant neoplasm of trachea, bronchus and lung; Z80.51 Family history of malignant neoplasm of kidney; Z82.49 Family history of ischemic heart disease and other diseases of the circulatory system; Z85.3 Personal history of malignant neoplasm of breast; Z86.73 Personal history of transient ischemic attack (TIA), and cerebral infarction without residual deficits; Z90.710 Acquired absence of both cervix and uterus; Y92.89 Other specified places as the place of occurrence of the external cause; Z90.49 Acquired absence of other specified parts of digestive tract; Z20.828 Contact with and (suspected) exposure to other viral communicable diseases
CPT/HCPCS: 36415; 70450; 70496; 70498; 71045; 80048; 80053; 84484; 85025; 85610; 85730; 93005; 96360; 99406; Q9967; 97116; 97530; 99285-25; J7030

== ENCOUNTER 2020-08-06 20:10 | Observation (INO) | payer MEDICARE, OTHER ==
[~2020-08-06] VITALS: Ht 167.6 cm; Wt 77.1 kg
[~2020-08-06 20:10] MED LIST changes: +AMLO-186 PO; +ANAS1TAB47 PO; +ESCI10TA2 PO; +LISI40TA PO
--- NOTE | 2020-08-06 20:27 | PHYS DOC ---
Past History Past Medical History: Anxiety, Cancer, CVA, Depression, Diabetes, Hypertension, Other Past Surgical History: Cancer Surgery, Hysterectomy, Tonsillectomy Smoking: Cigarettes Alcohol Use: None Drug Use: None General Adult EDM: Chief Complaint: CHEST PAIN HPI: HPI: Patient is a [a history obtained from patient. Patient is a 75-year-old female with a history of hypertension and tobacco abuse, breast cancer who presents with chief complaint of chest pain. States the chest pain began approximate hour prior to arrival while at rest. States it was a chest pressure-like sensation that was nonradiating. She noted associated shortness of breath with it. She states he subsequently checked her blood pressure at home and noted to be a systolic 180. She also notes that her heart was beating quickly. She no jovan a history of anxiety but states this feels very different. Denies any history of coronary artery disease, invasive cardiac testing. 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 Denies cough or fever. States that she did have a bilateral mastectomy in December 2019. She does still receive treatment for breast cancer she states. Denies a history of blood clot in legs or lungs. Denies of swellin g to the legs. Does note that additional antihypertensive medications have been added to her regimen given the difficulty in controlling this. She notes was recently hospitalized in June for concern of TIA. Denies any exacerbation of her symptoms with food. Denies syncope. No other complaints. Review of Systems: Review of Systems: Constitutional: Denies fever or chills Eyes: Denies change in visual acuity HENT: Denies nasal congestion or sore throat Respiratory: Positive shortness of breath Cardiovascular: Positive for chest pain GI: Denies abdominal pain, nausea, vomiting, bloody stools or diarrhea : Denies dysuria Musculoskeletal: Denies back pain or joint pain Integument: Denies rash Neurologic: Denies headache, focal weakness or sensory changes Endocrine: Denies polyuria or polydipsia Lymphatic: Denies swollen glands Psychiatric: Denies depression or anxiety Allergies: Allergies: Allergies Coded Allergies Type Severity Reaction Last Updated Verified banana Allergy Unknown 06/12/20 Yes blue dye Allergy Unknown 06/12/20 Yes blueberry Allergy Unknown 06/12/20 Yes erythromycin base Allergy Unknown 12/16/18 Yes red dye Allergy Unknown 06/12/20 Yes yellow dye Allergy Unknown 06/12/20 Yes Uncoded Allergies Type Severity Reaction Last Updated Verified ANY DYE Allergy Unknown 12/16/18 Physical Exam: PE: Constitutional: Well developed, well nourished, no acute distress, non-toxic appearance. [] HENT: Normocephalic, atraumatic, bilateral external ears normal, oropharynx moist, no oral exudates, nose normal. [] Eyes: PERRLA, EOMI, conjunctiva normal, no discharge. [] Neck: Normal range of motion, no tenderness, supple, no stridor. [] Cardiovascular:Heart rate regular rhythm, no murmur [] Lungs & Thorax: Bilateral breath sounds clear to auscultation [] Abdomen:soft, no tenderness, no masses, no pulsatile masses. [] Skin: Warm, dry, no erythema, no rash. [] Back: No tenderness, no CVA tenderness. [] Extremities: No tenderness, no cyanosis, no clubbing, ROM intact, no edema. [] Neurologic: Alert and oriented X 3, normal motor function, normal sensory function, no focal deficits noted. [] Psychologic: Affect normal, judgement normal, mood normal. [] Current Patient Data: Labs: Laboratory Tests Test 08/06/20 20:35 White Blood Count 11.3 x10^3/uL Red Blood Count 4.50 x10^6/uL Hemoglobin 14.0 g/dL Hematocrit 42.0 % Mean Corpuscular Volume 93 fL Mean Corpuscular Hemoglobin 31 pg Mean Corpuscular Hemoglobin Concent 33 g/dL Red Cell Distribution Width 13.1 % Platelet Count 237 x10^3/uL Neutrophils (%) (Auto) 73 % Lymphocytes (%) (Auto) 18 % Monocytes (%) (Auto) 8 % Eosinophils (%) (Auto) 1 % Basophils (%) (Auto) 1 % Neutrophils # (Auto) 8.2 x10^3uL Lymphocytes # (Auto) 2.1 x10^3/uL Monocytes # (Auto) 0.9 x10^3/uL Eosinophils # (Auto) 0.1 x10^3/uL Basophils # (Auto) 0.1 x10^3/uL Sodium Level 134 mmol/L Potassium Level 3.5 mmol/L Chloride Level 96 mmol/L Carbon Dioxide Level 27 mmol/L Anion Gap 11 Blood Urea Nitrogen 9 mg/dL Creatinine 1.0 mg/dL Estimated GFR (Cockcroft-Gault) 54.3 BUN/Creatinine Ratio 9 Glucose Level 145 mg/dL Calcium Level 9.3 mg/dL Total Bilirubin 0.3 mg/dL Aspartate Amino Transf (AST/SGOT) 11 U/L Alanine Aminotransferase (ALT/SGPT) 19 U/L Alkaline Phosphatase 93 U/L Troponin I Quantitative < 0.017 ng/mL SU-Kpk-H-Type Natriuretic Peptide 228 pg/mL Total Protein 7.2 g/dL Albumin 3.8 g/dL Albumin/Globulin Ratio 1.1 Lipase 171 U/L Current Medications Medications (Trade) Dose Ordered Sig/Antonio Route PRN Reason Start Time Stop Time Status Last Admin Dose Admin Nitroglycerin (Nitrostat) 0.4 mg PRN Q5MIN PRN SL CHEST PAIN 08/06/20 20:30 08/06/20 20:44 Iohexol (Omnipaque 350 Mg/ml) 100 ml 1X ONCE IV 08/06/20 20:45 08/06/20 20:46 DC 08/06/20 21:55 Info (Do NOT chart on this entry -- for MONITORING) 1 each PRN DAILY PRN MC SEE COMMENTS 08/06/20 20:45 08/08/20 20:44 Vital Signs: Vital Signs Date Time Temp Pulse Resp B/P (MAP) Pulse Ox O2 Delivery O2 Flow Rate FiO2 08/06/20 21:15 87 24 123/77 (92) 95 Room Air 08/06/20 21:00 90 22 163/83 (109) 96 Room Air 08/06/20 20:45 116 18 165/111 (129) 95 Room Air 08/06/20 20:44 116 161/93 08/06/20 20:15 98.6 116 20 161/93 (115) 97 Room Air EKG: EKG: EKG consistent with sinus tachycardia. Ventricular rate of 105 bpm. Left axis noted. Prominent T waves noted in the anterior precordial leads. No acute ST segment elevation appreciated. [] Radiology/Procedures: Radiology/Procedures: [address] [address] IMAGING REPORT Signed PATIENT: MICHELLE CASTLE AACCOUNT: [id number] : 1945 LOCATION: ER AGE: 75 SEX: F EXAM STATUS: REG ER ORD. PHYSICIAN: LUKAS CARVER DO REASON: OMNI 350, 100ML IV.CP and SOB. hx breast CA PROCEDURE: CT ANGIOGRAPHY CHEST Exam: CT of chest with contrast INDICATION: Chest pain TECHNIQUE: Sequential axial images through the chest obtained following the administration 100 mL of Omni 350 IV contrast. Sagittal and coronal reformatted images were reconstructed from the axial data and reviewed. 3-D reformatted images were reconstructed from the axial data and reviewed. Comparisons: None FINDINGS: Visualized portions of the thyroid are unremarkable. No enlarged mediastinal lymph nodes are identified. Heart size is normal. No pericardial effusion. Thoracic aorta has a normal course and caliber. Pulmonary artery is not enlarged. No pulmonary embolus identified within the main, lobar or segmental pulmonary arteries. Airways are patent. No consolidation or pneumothorax. Strandy opacities at the dependent portion lungs likely representing atelectasis. No pleural effusion. No suspicious lung nodules are identified. Moderate-sized hiatal hernia. No suspicious osseous lesions or acute fractures. IMPRESSION: 1. No pulmonary embolus identified within the main, lobar or segmental pulmonary arteries. 2. Moderate-sized hiatal hernia. Exposure: One or more of the following in the visualized dose reduction techniques were utilized for this examination: 1. Automated exposure control 2. Adjustment of the MA and/or KV according to patient size 3. Use of iterative of reconstructive technique Electronically signed by: Kevin Billings MD (08/06/2020 10:30 PM) [facility] DICTATED AND SIGNED BY: KEVIN BILLINGS MD DATE: 08/06/202229 CC: JUAN RAMON LUGO MD; LUKAS CARVER DO ~ Heart Score: HEART Score for Chest Pain: HEART Score for Chest Pain Response (Comments) Value History Moderately Suspicious 1 ECG Nonspecific Repolarizatio 1 Age > 65 2 Risk Factors 1 or 2 Risk Factors 1 Troponin < Normal Limit 0 Total 5 Risk Factors: Risk Factors: DM, Current or recent (<one month) smoker, HTN, HLP, family history of CAD, obesity. Risk Scores: Score 0 - 3: 2.5% MACE over next 6 weeks - Discharge Home Score 4 - 6: 20.3% MACE over next 6 weeks - Admit for Clinical Observation Score 7 - 10: 72.7% MACE over next 6 weeks - Early Invasive Strategies Course & Med Decision Making: Course & Med Decision Making Pertinent Labs and Imaging studies reviewed. (See chart for details) [] Patient is a 75-year-old female who presents with chief complaint of chest pressure associated with elevated blood pressure prior to arrival. Initial blood pressure notable for systolic 160. EKG without acute ischemic changes. Given her history of breast cancer CT PE study was obtained and was negative. Initial troponin negative. I am somewhat concerned given the patient's description of chest pressure with associated elevated blood pressure. Her symptoms are also relieved with nitroglycerin. I do feel the patient is a moderate risk heart score. I do feel she would benefit from hospitalization and further work-up. Patient will be hospitalized for further care. She is currently chest pain-free. She was given full dose aspirin. [place] Disclaimer: Rashel Disclaimer: This electronic medical record was generated, in whole or in part, using a voice recognition dictation system. Departure Departure: Impression: Primary Impression: Chest pain Qualified Codes: R07.9 - Chest pain, unspecified Additional Impression: Hypertension Qualified Codes: I10 - Essential (primary) hypertension Disposition: 01 DC HOME SELF CARE/HOMELESS Condition: STABLE Referrals: JUAN RAMON LUGO MD (PCP) LUKAS CARVER DO Aug 06, 2020 20:27
--- NOTE | 2020-08-06 20:34 | EKG ---
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
[2020-08-06] MEDS: NITROGLYCERIN SUBLINGUAL 0.4 MG BOTTLE OF 25. SL PRN (20:44)
[2020-08-06] MEDS ORDERED: CONTRAST GIVEN. MC PRN (20:45)
[2020-08-06 21:23] LABS: CALCIUM 9.3 mg/dL (8.5-10.1); GFR 54.3; POTASSIUM 3.5 mmol/L (3.5-5.1)
[2020-08-06 21:24] LABS: BASO # 0.1 x10^3/uL (0.0-0.2); BASO % 1 % (0-3); EOS # 0.1 x10^3/uL (0.0-0.7); EOS % 1 % (0-3); LYMPH # 2.1 x10^3/uL (1.0-4.8); LYMPH % 18 % (24-48); MEAN CORPUSCULAR HEMOGLOBIN 31 pg (25-35); MEAN CORPUSCULAR HGB CONC 33 g/dL (31-37); MEAN CORPUSCULAR VOLUME 93 fL (79-100); MONO # 0.9 x10^3/uL (0.0-1.1); MONO % 8 % (0-9); NEUT # 8.2 x10^3uL (1.8-7.7); NEUT % 73 % (31-73); PLATELET COUNT 237 x10^3/uL (140-400); RED CELL DISTRIBUTION WIDTH 13.1 % (11.5-14.5); WHITE BLOOD COUNT 11.3 x10^3/uL (4.0-11.0)
[2020-08-06 21:35] LABS: ALBUMIN 3.8 g/dL (3.4-5.0); ALBUMIN/GLOBULIN RATIO 1.1 (1.0-1.7); TOTAL BILIRUBIN 0.3 mg/dL (0.2-1.0); TOTAL PROTEIN 7.2 g/dL (6.4-8.2)
[2020-08-06] MEDS: IOHEXOL 350 MG/ML 100 ML VIAL. IV ONE (21:55)
--- NOTE | 2020-08-06 22:33 | RAD ---
Exam: CT of chest with contrast INDICATION: Chest pain TECHNIQUE: Sequential axial images through the chest obtained following the administration 100 mL of Omni 350 IV contrast. Sagittal and coronal reformatted images were reconstructed from the axial data and reviewed. 3-D reformatted images were reconstructed from the axial data and reviewed. Comparisons: None FINDINGS: Visualized portions of the thyroid are unremarkable. No enlarged mediastinal lymph nodes are identified. Heart size is normal. No pericardial effusion. Thoracic aorta has a normal course and caliber. Pulmonary artery is not enlarged. No pulmonary embolus identified within the main, lobar or segmental pulmonary arteries. Airways are patent. No consolidation or pneumothorax. Strandy opacities at the dependent portion lungs likely representing atelectasis. No pleural effusion. No suspicious lung nodules are identified. Moderate-sized hiatal hernia. No suspicious osseous lesions or acute fractures. IMPRESSION: 1. No pulmonary embolus identified within the main, lobar or segmental pulmonary arteries. 2. Moderate-sized hiatal hernia. Exposure: One or more of the following in the visualized dose reduction techniques were utilized for this examination: 1. Automated exposure control 2. Adjustment of the MA and/or KV according to patient size 3. Use of iterative of reconstructive technique Electronically signed by: Kevin Astudillo MD (08/06/2020 10:30 PM) [facility]
[2020-08-06] MEDS ORDERED: ASPIRIN 325 MG TABLET PO ONE (23:15)
[2020-08-07 00:14] VITALS: BP 155/83
[2020-08-07] MEDS: ASPIRIN 325 MG TABLET PO ONE (00:14)
[2020-08-07 05:52] VITALS: BP 154/69
[2020-08-07] MEDS ORDERED: PANTOPRAZOLE 40 MG TABLET. PO ONE (10:45)
[2020-08-07 10:58] VITALS: BP 174/90
--- NOTE | 2020-08-07 11:04 | HP ---
ADMIT DATE: 08/06/2020 ATTENDING PHYSICIAN: Dr. Koch. CHIEF COMPLAINT: Chest pain. HISTORY OF PRESENT ILLNESS: The patient is a 75-year-old female with known hypertension and continued tobacco use. She has had breast cancer. She had a chief complaint of chest pain 1 hour prior to arrival, pressure-like sensation, nonradiating, associated shortness of breath. Subsequent blood pressure was high. There is a history of anxiety. Her initial cardiac enzymes were negative for coronary ischemia. CT scan ruled out any blood clots; however, she does have a moderate size hiatal hernia. She is admitted then for serial enzymes and further evaluation. PAST MEDICAL HISTORY: Significant for breast cancer, old stroke with minimal residual deficit, depression, anxiety, type 2 diabetes and essential hypertension. SURGICAL HISTORY: Includes cancer surgery for breast cancer, hysterectomy and tonsillectomy. ALLERGIES: SHE HAS ALLERGIES TO BLUEBERRY, BANANA AND YELLOW AND RED DYE, ERYTHROMYCIN BASE. CURRENT MEDICATIONS: That were scheduled include the following: She was taking amlodipine 5 mg daily, Arimidex, Tums, Lexapro, latanoprost eyedrops, lisinopril 40 daily, loratadine, metoprolol, Imitrex p.r.n., and Ultram p.r.n. SOCIAL HISTORY: She is a smoker, half a pack of cigarettes a day. She denies any alcohol use. FAMILY HISTORY: Noncontributory. REVIEW OF SYSTEMS: Significant for caffeine use. No alcohol. She has had some anxiety, blood pressure has been elevated. She has had indigestion. She takes Tums. She denied any recent fevers, chills or COVID exposure. All other systems reviewed and turned to be negative. PHYSICAL EXAMINATION: GENERAL: When I saw her, this is a pleasant, middle-aged female. INITIAL VITAL SIGNS: Showed a blood pressure 154/69 mmHg, pulse of 77 and regular, temperature 97.8 degrees Fahrenheit, oxygen saturation 95% on room air. HEENT: Head is without trauma. Pupils are reactive. Sclerae nonicteric. Oropharynx is clear. NECK: Supple, no bruits identified. LUNGS: Otherwise, clear to auscultation. CARDIOVASCULAR: Showed regular heart tones. No gallops. Peripheral pulses are palpable and full. ABDOMEN: Soft, scaphoid, nontender, no organomegaly. Bowel sounds are hypoactive. EXTREMITIES: Showed no cyanosis or edema. NEUROLOGIC: Focally intact. Speech is fluent. SKIN: Warm and dry. PERTINENT LABORATORY STUDIES: Admission hemoglobin 14.0 g/dL, white count 11,300. Electrolytes within normal range. Nonfasting blood sugar 145. BNP 228. The first cardiac enzymes were negative for coronary ischemia. Subsequent troponin is pending. CT of the chest done late last night showed no evidence of pulmonary embolus. She has a moderate size hiatus hernia. The EKG is nondiagnostic. ASSESSMENT: 1. A 75-year-old female with atypical chest pain, most likely noncardiac in nature. 2. Epigastric pain due to hiatus hernia. 3. History of breast cancer. 4. Type 2 diabetes. She appears diet-controlled. 5. Essential hypertension. PLAN: 1. Observation status. 2. Serial enzymes. 3. Start proton pump inhibitor. 4. Strong encouragement to avoid tobacco and caffeine use. ELVIA KOCH MD DR: SERGIO/ephraim JOB#: [id number] / [id number]
--- NOTE | 2020-08-07 13:01 | DS ---
DATE OF DISCHARGE: 08/07/2020 ATTENDING PHYSICIAN: Dr. Koch. FINAL DISCHARGE DIAGNOSES: 1. Atypical epigastric pain, coronary ischemia ruled out. 2. Hiatus hernia, moderate sized. 3. Type 2 diabetes. 4. History of breast cancer. 5. Essential hypertension. 6. Generalized anxiety. 7. Sensorineural hearing loss. HISTORY AND PHYSICAL: The patient is a 75-year-old female admitted with atypical chest pain, noncardiac. Subsequent blood pressure is high. There is a strong anxiety component. CT scan in the ED ruled out any blood clots; however, she did have a large hiatal hernia. PHYSICAL EXAMINATION: Please see the dictated note. PERTINENT LABORATORY AND X-RAY STUDIES: Hemoglobin maintained at 14.0 g/dL, white count 11,300. Cardiac enzymes serially were negative for myocardial necrosis. Electrolytes; BUN and creatinine all within normal range. COURSE IN THE HOSPITAL: The patient was admitted. She was given a dose of proton pump inhibitors. Pain subsided. Symptoms resolved. Blood pressure, which had been high stabilized and was down to 154/69. By the next hospital day, reassurance, symptoms improved. Cardiac enzymes were negative for coronary ischemia. She is ready for discharge. At this time, I recommended Nexium 40 mg p.o. daily and strong encouragement to quit smoking, In addition, she should continue her amlodipine, Arimidex, calcium, Lexapro, latanoprost eye drops, lisinopril, loratadine, metoprolol; p.r.n. Imitrex and Ultram, dose is unchanged. She will follow up with her PCP as scheduled. She was discharged then from our hospital in stable condition with explicit instructions and followup care. TOTAL DISCHARGE TIME: 38 minutes. ELVIA KOCH MD DR: SERGIO/ephraim JOB#: [id number] / [id number]
== END 2020-08-07 12:20 | disposition home or self-care (01) ==
LOC: ER 20:10 → 1 SOUTH 22:59 → ER 23:18
PROVIDERS: ADMIT Hospitalist; ATTEND Hospitalist
DX: R07.89 Other chest pain (principal); R10.13 Epigastric pain; I10 Essential (primary) hypertension; E11.9 Type 2 diabetes mellitus without complications; F41.9 Anxiety disorder, unspecified; F32.9 Major depressive disorder, single episode, unspecified; H90.5 Unspecified sensorineural hearing loss; F17.210 Nicotine dependence, cigarettes, uncomplicated; Z85.3 Personal history of malignant neoplasm of breast; Z90.13 Acquired absence of bilateral breasts and nipples; Z86.73 Personal history of transient ischemic attack (TIA), and cerebral infarction without residual deficits; Z90.710 Acquired absence of both cervix and uterus; Z90.49 Acquired absence of other specified parts of digestive tract
CPT/HCPCS: 36415; 71275; 80053; 83690; 83880; 84484; 85025; 93005; 99285; G0378; Q9967; G0379

== ENCOUNTER → 2021-02-09 | Outpatient (CLI) | payer MEDICARE, OTHER ==
[~2021-02-09] MED LIST changes: +ATOR20TA58 PO; +DOXA2TAB PO; -ESCI10TA2 PO; +ESCI10TA90 PO; +ESOM40CA PO; +LISI10TA16 PO; -LISI10TA2 PO; -LISI40TA PO; +LISI40TA6 PO
== END ==
LOC: LAB 14:00
PROVIDERS: ATTEND Nurse Anesthetist, Certified Registered
DX: Z01.812 Encounter for preprocedural laboratory examination (principal); R13.10 Dysphagia, unspecified; Z20.822 Contact with and (suspected) exposure to COVID-19
CPT/HCPCS: U0003

== ENCOUNTER → 2021-02-12 | Day surgery (SDC) | payer MEDICARE, OTHER ==
[~2021-02-12] MED LIST changes: +IPRATRPIUM/ALBUTEROL 0.5/2.5MG 3 ML NEBU. NEB PRN; +IV RINGERS SOLUTION,LACTATED 1,000 ML IV SCH; +LIDOCAINE 2% PF 5 ML VIAL. ONE; +MIDAZOLAM HCL PF 2 MG/2 ML VIAL. IV ONE; +ONDANSETRON PF 4 MG/2 ML VIAL. IV PRN; +PROPOFOL 10,000 MCG/ML (20ML) VIAL IV ONE
[2021-02-12 14:05] VITALS: BP 160/93
--- NOTE | 2021-02-16 14:11 | PATHOLOGY ---
[facility] Accession Number: [id number] . 01 Material submitted: . PART A: stomach - ANTRUM BIOPSY. Modifiers: ANTRUM PART B: colon - TRANSVERSE COLON POLYP BIOPSY. Modifiers: transverse . 01 Clinical history: . GERD DYSPHAGIA, SCREENING COLON EGD/COLON EGD+COLONOSCOPY . 02 Diagnosis: A. Gastric biopsies, antrum: - Congestion and minimal chronic inflammation. . B. Colon biopsy, transverse colon polyp: - Diminutive tubular adenoma. (JPM:emma; 02/16/2021) QMS 02/16/2021 1105 Local . 02 Comment: Sections of the gastric biopsy reveal segments of gastric antral and antral/body transition mucosa showing congestion and minimal chronic inflammation. A properly controlled immunoperoxidate stain for Helicobacter is negative for Helicobacter organisms. . Sections of the transverse colon biopsy reveal a diminutive tubular adenoma showing no high grade dysplasia or evidence of malignancy. (JPM:emma; 02/16/2021) . Special stain performed: Immunoperoxidase stain for Helicobacter on A1 . 02 Electronically signed: . Enrique Moe MD, Pathologist NPI- [id number] . 01 Gross description: . A. The specimen is received in formalin, labeled "Uzma Vergara, antrum BX" received as 2 fragments of soft reynolds tissue measuring up to 0.4 cm. Entirely submitted in A1. . B. The specimen is received in formalin, labeled "Uzma Vergara, transverse colon polyp BX" received as one fragment of soft reynolds tissue measuring up to 0.3 cm. Entirely submitted in B1.([facility]; 02/15/2021) JOSLYN/JOSLYN 02/16/2021 1102 Local . 02 Pathologist provided ICD-10: K29.50, D12.3 . 02 CPT . 953033, 516021, Q75174 Specimen Comment: A courtesy copy of this report has been sent to [phone], [phone] Specimen Comment: [id number] Specimen Comment: Report sent to / DR LUGO Specimen Comment: A duplicate report has been generated due to demographic updates. Performed at: 01 [facility] [address] [facility] [address] [facility] [address], [place] [id number] MD Zain Turk MD Phone: [phone] Performed at: 02 [facility] [address] [place], [place] [id number] MD Enrique Moe MD Phone: [phone]
== END | disposition home or self-care (01) ==
LOC: SURG 10:58
PROVIDERS: ATTEND Internal Medicine Gastroenterology
DX: Z12.11 Encounter for screening for malignant neoplasm of colon (principal); R12 Heartburn; R13.10 Dysphagia, unspecified; K29.50 Unspecified chronic gastritis without bleeding; D12.3 Benign neoplasm of transverse colon; K64.8 Other hemorrhoids; K44.9 Diaphragmatic hernia without obstruction or gangrene; K22.8 Other specified diseases of esophagus; K57.30 Diverticulosis of large intestine without perforation or abscess without bleeding; I10 Essential (primary) hypertension; K21.9 Gastro-esophageal reflux disease without esophagitis; F32.9 Major depressive disorder, single episode, unspecified; Z88.8 Allergy status to other drugs, medicaments and biological substances; Z79.899 Other long term (current) drug therapy; Z98.890 Other specified postprocedural states; Z85.3 Personal history of malignant neoplasm of breast; Z90.13 Acquired absence of bilateral breasts and nipples; Z90.710 Acquired absence of both cervix and uterus; Z80.1 Family history of malignant neoplasm of trachea, bronchus and lung; Z80.8 Family history of malignant neoplasm of other organs or systems; Z82.49 Family history of ischemic heart disease and other diseases of the circulatory system; J44.9 Chronic obstructive pulmonary disease, unspecified; Z88.1 Allergy status to other antibiotic agents; Z90.49 Acquired absence of other specified parts of digestive tract
CPT/HCPCS: 43239; 45380; 88305; 88342; J2001; J2704

== ENCOUNTER → 2021-07-06 | Outpatient (CLI) | payer MEDICARE, OTHER ==
[2021-02-12 14:05] VITALS: BP 160/93
[~2021-07-06] MED LIST changes: +IOHEXOL 350 MG/ML 100 ML VIAL. IV ONE; -IPRATRPIUM/ALBUTEROL 0.5/2.5MG 3 ML NEBU. NEB PRN; -IV RINGERS SOLUTION,LACTATED 1,000 ML IV SCH; -LIDOCAINE 2% PF 5 ML VIAL. ONE; -MIDAZOLAM HCL PF 2 MG/2 ML VIAL. IV ONE; -ONDANSETRON PF 4 MG/2 ML VIAL. IV PRN; -PROPOFOL 10,000 MCG/ML (20ML) VIAL IV ONE
[2021-07-06 14:23] LABS: CREATININE 1.1 mg/dL (0.6-1.0); GFR 48.6
--- NOTE | 2021-07-06 15:49 | RAD ---
XR FOOT_RIGHT 3 VIEWS DATE: 07/06/2021 1:58 PM INDICATION: RIGHT FOOT PAIN, DOOR SLAMMED INTO HEEL COMPARISON: None. FINDINGS: Bones: There is no evidence of acute fracture or dislocation. Joints: The joint spaces are normal. Miscellaneous: None. IMPRESSION: No evidence of acute fracture. Electronically signed by: Edd Lawrence MD (07/06/2021 3:46 PM) [id number]
--- NOTE | 2021-07-06 15:58 | RAD ---
EXAM: CT HEAD/BRAIN WO, CTA HEAD DATE: 07/06/2021 2:37 PM INDICATION: TIA, UNSPECIFIED TECHNIQUE: 5 mm axial tomographic images were obtained through the head before contrast. CTA angiogra m was obtained after administration of intravenous contrast. Multiplanar reconstruction images to in clude MIP and 3-D reconstruction images are submitted. One or more of the following dose reduction techniques were utilized: Automated exposure control (AEC), Adjustment of mA and/or kV according to p atient size, Use of iterative reconstruction technique such as ASiR, CT scan done according to ALARA and image gently/image wisely COMPARISON: 06/11/2020. FINDINGS: Noncontrast CT: The brain parenchyma is normal in attenuation. No intra- or extra-axial mass or fluid collection. No hyperdense intracranial hemorrhage. The ventricles are normal in size and configuration without midli ne shift. There is normal darby-white matter differentiation. The subarachnoid cisterns are patent. The visualized paranasal sinuses are well aerated. The mastoid air cells are clear. The visualized po rtions of the orbits are normal. No aggressive osseous lesion or fracture. CTA Head: Left paraclinoid ICA stent. The visualized distal internal carotid arteries, anterior and m iddle cerebral arteries are patent and normal caliber. The distal vertebral arteries, basilar artery, and posterior cerebral arteries are patent and normal caliber. No aneurysm or arteriovenous malforma tion is seen. IMPRESSION: No aneurysm. No arterial stenosis or occlusion. Intracranial left ICA stent is patent. Electronically signed by: Edd Lawrence MD (07/06/2021 3:56 PM) [id number]
== END ==
LOC: CT 13:30
PROVIDERS: ATTEND Family Medicine
DX: G45.9 Transient cerebral ischemic attack, unspecified (principal); M79.671 Pain in right foot
CPT/HCPCS: 36415; 70450; 70496; 73630; 82565; Q9967

== ENCOUNTER → 2021-08-31 | Outpatient (CLI) | payer MEDICARE, OTHER ==
[2021-02-12 14:05] VITALS: BP 160/93
[~2021-08-31] MED LIST changes: -IOHEXOL 350 MG/ML 100 ML VIAL. IV ONE
[2021-08-31] MEDS: REGADENOSON 0.4 MG/5 ML DISP.SYRIN. IV ONE (11:40)
--- NOTE | 2021-08-31 12:55 | CARD ---
MR#: [id number] Date of Study: 08/31/2021 Ordering Physician: JARVIS STAPLETON, Referring Physician: JARVIS STAPLETON, Tech: Vanessa Olivarez, [facility] APPROVED REPORT EXAM: Two-dimensional and M-mode echocardiogram with Doppler and color Doppler. Other Information Quality : AverageHR: 62bpm INDICATION Chest Pain 2D DIMENSIONS Left Atrium(2D)3.5 (1.6-4.0cm)IVSd0.9 (0.7-1.1cm) Aortic Root(2D)3.1 (2.0-3.7cm)LVDd4.6 (3.9-5.9cm) LVOT Diameter2.0 (1.8-2.4cm)PWd1.1 (0.7-1.1cm) LVDs2.0 (2.5-4.0cm)FS (%) 55.8 % SV84.3 mlLVEF(%)86.3 (>50%) Aortic Valve AoV Peak Erick.146.1cm/sAoV VTI36.0cm AO Peak GR.8.5mmHgAO Mean GR.5mmHg Mitral Valve MV E Vdbbsezf61.2cm/sMV E Peak Gr.3mmHg MV DECEL [id number] A Rmyeetam47.1cm/s MV E Mean Gr.1mmHgE/A Ratio0.8 Pulmonary Valve PV Peak Ofshmejg84.1cm/sPV Peak Grad.3mmHg Tricuspid Valve TR P. Xfcjkimh481cq/sRAP GPEXPCZK6ayLw TR Peak Gr.59sjBaWIEE66uzAh Pulmonary Vein S1 Vrbrtpmi83.2cm/sD2 Aojtjpeb77.9cm/s LEFT VENTRICLE The left ventricle is normal size. There is normal left ventricular wall thickness. The left ventricu lar systolic function is normal. The Ejection Fraction is 65%. There is normal LV segmental wall lilia on. Transmitral Doppler flow pattern is Grade I-abnormal relaxation pattern. RIGHT VENTRICLE The right ventricle is normal size. There is normal right ventricular wall thickness. The right ventr icular systolic function is normal. ATRIA The left atrium size is normal. The right atrium size is normal. The interatrial septum is intact wit h no evidence for an atrial septal defect or patent foramen ovale as noted on 2-D or Doppler imaging. AORTIC VALVE The aortic valve is normal in structure and function. Doppler and Color Flow revealed no significant aortic regurgitation. There is no significant aortic valvular stenosis. Calculated aortic valve area is cm2 with maximum pressure gradient of 9 mmHg and mean pressure gradient of 5 mmHg. MITRAL VALVE The mitral valve is normal in structure and function. There is no evidence of mitral valve prolapse. There is no mitral valve stenosis. Doppler and Color-flow revealed trace mitral regurgitation. TRICUSPID VALVE The tricuspid valve is normal in structure and function. Doppler and Color Flow revealed trace tricus pid regurgitation with an estimated PAP of 29 mmHg. There is no tricuspid valve stenosis. PULMONIC VALVE The pulmonic valve is not well visualized. Doppler and Color Flow revealed trace pulmonic valvular re gurgitation. GREAT VESSELS The aortic root is normal in size. The IVC is normal in size and collapses >50% with inspiration. PERICARDIAL EFFUSION There is no evidence of significant pericardial effusion. Critical Notification Critical Value: No <Conclusion> The left ventricular systolic function is normal. The Ejection Fraction is 65%. There is normal LV segmental wall motion. Transmitral Doppler flow pattern is Grade I-abnormal relaxation pattern. Trace mitral regurgitation. Trace tricuspid regurgitation with an estimated PAP of 29 mmHg. There is no evidence of significant pericardial effusion. Signed by : Pancho Barreto, Electronically Approved : 08/31/2021 12:55:09
--- NOTE | 2021-08-31 14:48 | RAD ---
MR#: [id number] Date of Study: 08/31/2021 Ordering Physician: JARVIS STAPLETON, Referring Physician: CAPRICE HASKINS Tech: MARBELLA Curtis ARRT (R) (N) APPROVED REPORT Test Type: Pharmacological Stress Nurse/Tech: BRITTANY Russell Test Indications: Chest pain Cardiac History: See Electronic Medical Record Medications: See Electronic Medical Record Medical History: See Electronic Medical Record Resting Heart Rate: 58 bpm Resting Blood Pressure: 143/60mmHg Pretest Chest Pain: None Nurse/Tech Notes SR Consent: The procedure was explained to the patient in lay terms. Informed consent was witnessed. Edgar eout was entered into [employer]. History and Stress Test performed by MARBELLA Curtis ARRT (R) (N) Pharm. Details Pharmacologic stress testing was performed using 0.4mg per 5ml of regadenoson given intravenously ove r 7-10 seconds. Stress Symptoms No chest pain or symptoms. POST EXERCISE Reason for Termination: Infusion complete Target HR: No Max HR: 77 bpm Exercise duration: 6 min:sec, Stage Max Blood Pressure: 132/69mmHg Blood Pressure response to exercise: Normal blood pressure response during stress. Chest Pain: No. Arrhythmia: No. ST Change: No. INTERPRETATION Stress EKG Conclusion: Baseline EKG showed sinus rhythm. No ischemic changes at peak stress. No arr hythmias. Imaging Protocol IMAGE PROTOCOL: Rest Tc-99m/stress Tc-99m 1 day Rest: Stress: Viability: Radiopharm.Tc99m RvvvoujryMf26s Sestamibi Ujkk95qSg 31mCi Img Date 08/31/2021 08/31/2021 Inj-Img Wqro97ctk. 60min. Rest Admin Site:IV - Left ForearmAdministrator: MARBELLA Curtis ARRT (R)(N) Stress Admin Site: IV - Left ForearmAdministrator: MARBELLA Curtis ARRT (R)(N) STRESS DATA End Diast. Vol.62.0mlAv. Heart Rate57.0bpm End Syst. Vol.4.0mlCO Index BSA0.0L/min Myocardial Gost150.0gEject. Zifzgkdb43.0% Stress Rates Pk. Fill Rate3.64EDV/secLVtime Pk. Fill 228.93msec Pk. Empty Rate4.11ESV/secLVtime Pk. Aoaax946.46msec 1/3 Pk. Fill1.12EDV/sec Stress Scores Regional WT0.00Summed WT0.00 Regional WM0.00Summed WM0.00 Study quality was good. Left Ventricular size was Normal at Rest and Stress. Lung uptake was . Left Ventricular ejection fraction is 84%. The rest and stress images show normal perfusion, normal contraction and thickening. LV Perf. Quant 17 Seg. SSS1.00 17 Seg. SRS6.00 17 Seg. SDS0.00 Stress Defect Extent (% LAD)0.00Rest Defect Extent (% LAD)0.00Rev. Defect Extent (% LAD)0.00 Stress Defect Extent (% LCX) 0.00Rest Defect Extent (% LCX)30.00Rev. Defect Extent (% LCX)0.00 Stress Defect Extent (% RCA)0.00Rest Defect Extent (% RCA)1.10Rev. Defect Extent (% RCA)0.00 Stress Defect Extent (% BRAD)0.00Rest Defect Extent (% BRAD)8.50Rev. Defect Extent (% BRAD)0.00 Conclusion 1. Regadenoson cardioisotope stress test did not show any evidence of ischemia or infarct. 2. Normal left ventricular systolic function with ejection fraction calculated at 84%. 3. Low risk for cardiac events. Signed by : Pancho Barreto, Electronically Approved : 08/31/2021 14:48:17
== END ==
LOC: NM 07:43
PROVIDERS: ATTEND Internal Medicine Cardiovascular Disease
DX: R07.9 Chest pain, unspecified (principal)
CPT/HCPCS: 78452; 93017; 93306; A9500; J2785